=== PATIENT | female | born 1995 | race Caucasian/White ===

== ENCOUNTER → 2017-03-20 | Outpatient (REF) | payer BC | LOC: M LAB REF 19:17 | DX: J02.9 Acute pharyngitis, unspecified (principal) | CPT/HCPCS: 87070 ==

== ENCOUNTER 2017-07-25 09:11 | Emergency (ER) | payer BC ==
[2017-07-25 10:50] LABS: BASO % 0.3 % (0.0-1.0); EOS # 0.1 10^3/uL (0.0-0.50); EOS % 0.7 % (0.0-3.0); HEMATOCRIT 44.2 % (36.0-47.0); HEMOGLOBIN 14.2 g/dl (12.0-15.5); IMMATURE GRANULOCYTE % 0.7 % (0-3.0); LYMPH # 2.8 10^3/uL (1.5-6.5); LYMPH % 24.5 % (24.0-44.0); MEAN CORPUSCULAR HEMOGLOBIN 25.7 pg (27.0-33.0); MEAN CORPUSCULAR HGB CONC 32.1 g/dl (32.0-36.5); MEAN CORPUSCULAR VOLUME 80.1 fl (80.0-96.0); MONO # 0.9 10^3/uL (0.0-0.8); MONO % 7.5 % (0.0-5.0); NEUTROPHILS # 7.6 10^3/uL (1.8-7.7); NEUTROPHILS % 66.3 % (36.0-66.0); PLATELET COUNT, AUTOMATED 306 10^3/uL (150-450); RED BLOOD COUNT 5.52 10^6/uL (4.00-5.40); RED CELL DISTRIBUTION WIDTH 13.3 % (11.5-14.5); WHITE BLOOD COUNT 11.5 10^3/uL (4.0-10.0)
[2017-07-25] MEDS: MORPHINE 4 MG/ML 1ML VIAL/SYRINGE (J2270) IV (11:03)
[2017-07-25] MEDS: NS 1,000 ML IV (11:03)
[2017-07-25] MEDS: ONDANSETRON 4MG/2ML VIAL (J2405) IV (11:03)
[2017-07-25 11:06] LABS: ANION GAP 8 MEQ/L (8-16); BLOOD UREA NITROGEN 14 MG/DL (7-18); CALCIUM LEVEL 9.5 MG/DL (8.5-10.1); CARBON DIOXIDE LEVEL 26 MEQ/L (21-32); CHLORIDE LEVEL 104 MEQ/L (98-107); CREATININE FOR GFR 0.81 MG/DL (0.55-1.30); GLOMERULAR FILTRATION RATE > 60.0 (>60); GLUCOSE, FASTING 90 MG/DL (70-100); POTASSIUM SERUM 4.3 MEQ/L (3.5-5.1); SODIUM LEVEL 138 MEQ/L (136-145)
[2017-07-25] MEDS ORDERED: ISOVUE-370 76% 100ML VIAL (Q9967) As Ordered (12:00)
== END 2017-07-25 13:17 | disposition home or self-care (01) ==
LOC: M ED 09:11
DX: N83.01 Follicular cyst of right ovary (principal)
CPT/HCPCS: J2270

== ENCOUNTER → 2017-08-15 | Outpatient (REF) | payer BC | LOC: M LAB REF 11:49 | DX: R11.2 Nausea with vomiting, unspecified (principal) | CPT/HCPCS: 87086 ==

== ENCOUNTER → 2017-08-17 | Outpatient (CLI) | payer BC ==
[2017-08-17 12:17] LABS: BASO % 0.5 % (0.0-1.0); EOS # 0.1 10^3/uL (0.0-0.50); EOS % 1.3 % (0.0-3.0); HEMATOCRIT 42.3 % (36.0-47.0); HEMOGLOBIN 13.3 g/dl (12.0-15.5); IMMATURE GRANULOCYTE % 0.3 % (0-3.0); LYMPH # 2.6 10^3/uL (1.5-6.5); LYMPH % 34.8 % (24.0-44.0); MEAN CORPUSCULAR HEMOGLOBIN 25.7 pg (27.0-33.0); MEAN CORPUSCULAR HGB CONC 31.4 g/dl (32.0-36.5); MEAN CORPUSCULAR VOLUME 81.7 fl (80.0-96.0); MONO # 0.6 10^3/uL (0.0-0.8); MONO % 8.6 % (0.0-5.0); NEUTROPHILS # 4.1 10^3/uL (1.8-7.7); NEUTROPHILS % 54.5 % (36.0-66.0); PLATELET COUNT, AUTOMATED 285 10^3/uL (150-450); RED BLOOD COUNT 5.18 10^6/uL (4.00-5.40); RED CELL DISTRIBUTION WIDTH 13.5 % (11.5-14.5); WHITE BLOOD COUNT 7.5 10^3/uL (4.0-10.0)
[2017-08-17 12:39] LABS: ALBUMIN 3.8 GM/DL (3.2-5.2); ALBUMIN/GLOBULIN RATIO 0.97 (1.00-1.93); ALKALINE PHOSPHATASE 76 U/L (45-117); ALT/SGPT 38 U/L (12-78); ANION GAP 9 MEQ/L (8-16); AST/SGOT 18 U/L (7-37); BILIRUBIN,TOTAL 0.4 MG/DL (0.2-1.0); BLOOD UREA NITROGEN 6 MG/DL (7-18); CALCIUM LEVEL 8.7 MG/DL (8.5-10.1); CARBON DIOXIDE LEVEL 24 MEQ/L (21-32); CHLORIDE LEVEL 108 MEQ/L (98-107); CREATININE FOR GFR 0.63 MG/DL (0.55-1.30); GLOMERULAR FILTRATION RATE > 60.0 (>60); GLUCOSE, FASTING 91 MG/DL (70-100); LIPASE 96 U/L (73-393); POTASSIUM SERUM 3.8 MEQ/L (3.5-5.1); SODIUM LEVEL 141 MEQ/L (136-145); TOTAL PROTEIN 7.7 GM/DL (6.4-8.2)
== END ==
LOC: M WUC 09:22
DX: R19.7 Diarrhea, unspecified (principal)

== ENCOUNTER → 2018-01-30 | Outpatient (REF) | payer BC | LOC: M LAB REF 19:19 | DX: J04.2 Acute laryngotracheitis (principal) | CPT/HCPCS: 87070 ==

== ENCOUNTER 2018-07-09 07:43 | Emergency (ER) | payer BC ==
[~2018-07-09] VITALS: Ht 149.9 cm; Wt 101.8 kg
[~2018-07-09 07:43] MED LIST: IBUP-1022 PO; ZOFR4TAB14 PO
[2018-07-09 07:45] VITALS: BP 130/79
[2018-07-09] MEDS ORDERED: PARO5TAB (07:51)
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
[2018-07-09] MEDS ORDERED: NAPR-837 PO (09:06)
== END 2018-07-09 09:11 | disposition home or self-care (01) ==
LOC: M ED 07:43
DX: S83.92XA Sprain of unspecified site of left knee, initial encounter (principal); S80.02XA Contusion of left knee, initial encounter; X58.XXXA Exposure to other specified factors, initial encounter; Y92.098 Other place in other non-institutional residence as the place of occurrence of the external cause

== ENCOUNTER 2018-08-06 16:18 | Emergency (ER) | payer BC ==
[~2018-08-06] VITALS: Ht 149.9 cm; Wt 103.2 kg
[~2018-08-06 16:18] MED LIST changes: +NAPR-837 PO; +PARO5TAB
--- NOTE | 2018-08-06 18:36 | REP ---
REASON: Knee pain. FINDINGS: The compartments are symmetric and relatively well maintained. There is no acute fracture or destructive osseous lesion. Electronically Signed by Vkitor Oleary DO 08/06/2018 07:43 P
[2018-08-06 19:04] VITALS: BP 129/81
== END 2018-08-06 19:19 | disposition home or self-care (01) ==
LOC: M ED 16:18
DX: S80.02XA Contusion of left knee, initial encounter (principal); X58.XXXA Exposure to other specified factors, initial encounter; Y92.099 Unspecified place in other non-institutional residence as the place of occurrence of the external cause; Y93.9 Activity, unspecified; Y99.9 Unspecified external cause status; Z79.899 Other long term (current) drug therapy

== ENCOUNTER → 2019-07-25 | Outpatient (REF) | payer BC | LOC: M WUC 16:09 | PROVIDERS: ATTEND Physician Assistant | DX: J02.9 Acute pharyngitis, unspecified (principal) ==

== ENCOUNTER → 2020-03-18 | Outpatient (CLI) | payer BC ==
--- NOTE | 2020-03-18 09:37 | REP ---
INDICATION: PAIN COMPARISON: None. TECHNIQUE: AP, lateral, bilateral oblique, and coned-down views of the lumbar spine. FINDINGS: Alignment and lordosis maintained. Vertebral bodies are intact. Disc spaces are relatively normal/age-appropriate. No acute fracture/compression injury or subluxation. No obvious spondylolysis or spondylolisthesis.. IMPRESSION: Normal Lumbosacral Spine series. <Electronically signed by Carlos Eduardo Sher > 03/18/20 0997
--- NOTE | 2020-03-18 09:40 | REP ---
INDICATION: PAIN COMPARISON: None. TECHNIQUE: AP, oblique and lateral views of the sacrum and coccyx (4 total views) FINDINGS: Sacrum and coccyx are intact. Bilateral sacroiliac joints are symmetric and normal. No acute fracture or dislocation. No healed injury. No obvious degenerative changes. IMPRESSION: Normal examination. No acute fracture or dislocation. <Electronically signed by Carlos Eduardo Sher > 03/18/20 0936
--- NOTE | 2020-03-18 09:41 | REP ---
INDICATION: PAIN COMPARISON: None. TECHNIQUE: AP and frog-lateral views of the right hip FINDINGS: No acute fracture or dislocation. No significant degenerative changes. Surrounding soft tissues are unremarkable. IMPRESSION: Normal right hip radiographs. <Electronically signed by Carlos Eduardo Sher > 03/18/20 0937
== END ==
LOC: M WUC 08:37
PROVIDERS: ATTEND Physician Assistant
DX: M54.5 Low back pain (principal); M25.551 Pain in right hip

== ENCOUNTER → 2020-07-17 | Outpatient (REF) | payer BC | LOC: M SFHCWAGY 17:32 | PROVIDERS: ATTEND Advanced Practice Midwife | DX: Z01.419 Encounter for gynecological examination (general) (routine) without abnormal findings (principal); Z12.4 Encounter for screening for malignant neoplasm of cervix ==

== ENCOUNTER → 2020-12-14 | Outpatient (CLI) | payer BC ==
[2020-12-14 18:13] LABS: HEMATOCRIT 38.9 % (36.0-47.0); HEMOGLOBIN 12.3 g/dl (12.0-15.5); MEAN CORPUSCULAR HEMOGLOBIN 25.7 pg (27.0-33.0); MEAN CORPUSCULAR HGB CONC 31.6 g/dl (32.0-36.5); MEAN CORPUSCULAR VOLUME 81.2 fl (80.0-96.0); PLATELET COUNT, AUTOMATED 260 10^3/uL (150-450); RED BLOOD COUNT 4.79 10^6/uL (4.00-5.40)
[2020-12-14 19:39] LABS: GC DNA AMPLIFICATION NEGATIVE (NEGATIVE)
[2020-12-14 21:38] LABS: HIV 1&2 SCREEN CENTAUR NEGATIVE (NEGATIVE)
[2020-12-15 06:06] LABS: HEPATITIS C VIRUS ABY INDEX 3.1 INDEX (<0.8)
== END ==
LOC: M PLALAB 13:41
PROVIDERS: ATTEND Advanced Practice Midwife
DX: Z34.81 Encounter for supervision of other normal pregnancy, first trimester (principal); Z3A.00 Weeks of gestation of pregnancy not specified

== ENCOUNTER 2021-01-01 14:05 | Emergency (ER) | payer BC ==
[~2021-01-01] VITALS: Ht 149.9 cm; Wt 105.8 kg
--- OUTSIDE RECORDS SUMMARY | 2021-01-01 14:11 | CCD ---
Author Author [facility] Organization [facility] Address Unknown Phone Unavailable Care Team Providers Care Work Station Support Specialist Name Role Phone Adrianna Cadet Unavailable PROBLEMS Type Condition ICD9-CM Code [id number] Code Onset Dates Condition S tatus W/U Status Risk SNOMED Code Notes Problem Generalized anxiety disorder F41.1 Active confirme d 14279654 Problem Supervision of other normal Z34.80 Ac tive confirm 106525409 ALLERGIES No Known Allergies ENCOUNTERS from 1994 to 2020-12-15 Encounter Location Date Provider Diagnosis [facility] [address] [place] [address] [place] [address] Dec, AdriannaLianna Cadet Encounter for superv ision of other normal in first trimester Z34.81 IMMUNIZATIONS No Information SOCIAL HISTORY Tobacco Use: Social History Observation Description Date Details (start date - stop date) Former Smoker Sex Assigned At : Social History Observation Description Sex Assigned At Unknown Tobacco Use: Question Answer Notes Are you a: former smoker How long has it been since you last smoked? 5-10 years REASON FOR REFERRAL No Information VITAL SIGNS Weight 230.2 lbs Dec, Weight-kg 104.42 kg Dec, Height 59 in Dec, BMI 46.495 kg/m2 Dec, Blood pressure systolic 120 mm Hg Dec, Blood pressure diastolic 72 mm Hg Dec, MEDICATIONS Medication SIG (Take, Route, Frequency, Duration) Notes Start Da te End Date Status Ondansetron 4 MG 1 tablet on the tongue and a llow to dissolve Orally Once a day for 30 day(s) Dec, Active ZyrTEC Not-Taking Singulair Not-Taking Effexor XR 37.5 MG 1 capsule with food Orally Once a day for 30 day(s) July, Active Cetirizine HCl 10 MG 1 tablet Orally Once a day for 30 day(s) Dec, Active 27-1 MG 1 tablet Orally Once a day Active PROCEDURES No Information RESULTS No Results REASON FOR VISIT 1st PN MEDICAL (GENERAL) HISTORY Type Description Date Medical History seasonal allergy Medical History anxiety Medical History hip dysplasia Surgical History adenoidectomy Surgical History tubes bilateral ears Surgical History 3 bone graft in mouth Surgical History Right Hip surgery Goals Section No Information Health Concerns No Information MEDICAL EQUIPMENT No Information MENTAL STATUS No Information FUNCTIONAL STATUS No Information ASSESSMENTS Encounter Date Diagnosis Assessment Notes Treatment Notes Treatm ent Clinical Notes Dec, Encounter for supervision of other normal in first trimester (ICD-10 - Z34.81) PLAN OF TREATMENT Medication Medication Name Sig Start Date Stop Date Ondansetron 4 MG 1 tablet on the tongue and a llow to dissolve Orally Once a day for 30 day(s) Dec, Cetirizine HCl 10 MG 1 tablet Orally Once a day for 30 day(s) Dec, Effexor XR 37.5 MG 1 capsule with food Orally Once a day fo r 30 day(s) July, Treatment Notes Test Name Order Date HIV 1and2 ANTIBODY SCREEN 2020-12-14 SYPHILIS ANTIBODY (RPR SCREEN) 2020-12-14 CBC - Complete Blood Count 2020-12-14 RUBELLA IMMUNE STATUS IgG 2020-12-14 URINE CULTURE 2020-12-14 CHLAMYDIA & GC DNA AMPLIFICAT 2020-12-14 HEPATITIS C ANTIBODY INDEX 2020-12-14 HBSAG 2020-12-14 Type and Screen Prenatal1 2020-12-14 Next Appt Details 4 Weeks Reason: Provider Name:Andreas Smyth, 07:15:00 AM, [address] [facility], , [place], [address], Insurance Providers Payer Name Payer Address Payer Phone Insured Name Patient Relati onship to Insured Coverage Start Date Coverage End Date BCBS [place] PPO [phone] [facility] [place] [address]
--- OUTSIDE RECORDS SUMMARY | 2021-01-01 14:11 | CCD ---
Author Author [facility] Organization [facility] Address Unknown Phone Unavailable Care Team Providers Care Claims Investigator Name Role Phone Marcos Corrales Unavailable PROBLEMS Type Condition ICD9-CM Code [id number] Code Onset Dates Condition S tatus W/U Status Risk SNOMED Code Notes Problem Generalized anxiety disorder F41.1 Active confirme d 28814159 Problem Supervision of other normal Z34.80 Ac tive confirm [id number] ALLERGIES No Known Allergies ENCOUNTERS from 1994 to 2020-12-10 Encounter Location Date Provider Diagnosis [facility] [address] [place] [address] [place] [address] Dec, Marcos Corrales IMMUNIZATIONS No Information SOCIAL HISTORY Tobacco Use: Social History Observation Description Date Details (start date - stop date) Former Smoker Sex Assigned At : Social History Observation Description Sex Assigned At Unknown Tobacco Use: Question Answer Notes Are you a: former smoker REASON FOR REFERRAL No Information VITAL SIGNS No information MEDICATIONS Medication SIG (Take, Route, Frequency, Duration) Notes Start Da te End Date Status ZyrTEC Active Singulair Active Effexor XR 37.5 MG 1 capsule with food Orally Once a day for 30 day(s) July, Active PROCEDURES No Information RESULTS No Results REASON FOR VISIT spotting MEDICAL (GENERAL) HISTORY Type Description Date Medical History seasonal allergy Medical History anxiety Medical History hip dysplasia Surgical History adenoidectomy Surgical History tubes bilateral ears Surgical History 3 bone graft in mouth Goals Section No Information Health Concerns No Information MEDICAL EQUIPMENT No Information MENTAL STATUS No Information FUNCTIONAL STATUS No Information ASSESSMENTS No Information PLAN OF TREATMENT Medication Medication Name Sig Start Date Stop Date Effexor XR 37.5 MG 1 capsule with food Orally Once a day fo r 30 day(s) July, Next Appt Details Provider Name:Adrianna Cadet, 2020-12-14 0 1:00:00 PM, [address] [facility], , [place], [address], Insurance Providers Payer Name Payer Address Payer Phone Insured Name Patient Relati onship to Insured Coverage Start Date Coverage End Date [phone] [facility] [place] [id number] JOSE ANGEL SALVADOR self
--- OUTSIDE RECORDS SUMMARY | 2021-01-01 14:12 | CCD ---
Author Author [facility] Organization [facility] Address Unknown Phone Unavailable Care Team Providers Care Cemetery Laborer Name Role Phone Romero, Maki KNIFEMAN Unavailable Unavailable Romero, Maki KNIFEMAN Unavailable Unavailable Romero, Maki KNIFEMAN Unavailable Unavailable Romero, Maki KNIFEMAN Unavailable Unavailable Romero, Maki KNIFEMAN Unavailable Unavailable Romero, Maki KNIFEMAN Unavailable Unavailable Romero, Maki KNIFEMAN Unavailable Unavailable Romero, Maki KNIFEMAN Unavailable Unavailable Romero, Maki KNIFEMAN Unavailable Unavailable Romero, Maki KNIFEMAN Unavailable Unavailable Romero, Maki KNIFEMAN Unavailable Unavailable Romero, Maki KNIFEMAN Unavailable Unavailable Romero, Maki KNIFEMAN Unavailable Unavailable Fish, B Romel GARCIA Unavailable Unavailable Fish, B Romel GARCIA Unavailable Unavailable Fish, B Romel GARCIA Unavailable Unavailable Fish, B Romel GARCIA Unavailable Unavailable Fish, B Romel GARCIA Unavailable Unavailable Fish, B Romel GARCIA Unavailable Unavailable Fish, B Romel GARCIA Unavailable Unavailable Fish, B Romel GARCIA Unavailable Unavailable Fish, B Romel GARCIA Unavailable Unavailable Fish, B Romel GARCIA Unavailable Unavailable Fish, B Romel GARCIA Unavailable Unavailable Fish, B Romel GARCIA Unavailable Unavailable Fish, B Romel GARCIA Unavailable Unavailable Fish, B Romel GARCIA Unavailable Unavailable Fish, B Romel GARCIA Unavailable Unavailable Fish, B Romel GARCIA Unavailable Unavailable Fish, B Romel GARCIA Unavailable Unavailable Fish, B Romel GARCIA Unavailable Unavailable Fish, B Romel GARCIA Unavailable Unavailable Fish, B Romel GARCIA Unavailable Unavailable Fish, B Romel GARCIA Unavailable Unavailable Fish, B Romel GARCIA Unavailable Unavailable Fish, B Romel GARCIA Unavailable Unavailable Fish, B Romel GARCIA Unavailable Unavailable Fish, B Romel GARCIA Unavailable Unavailable Fish, B Romel GARCIA Unavailable Unavailable Fish, B Romel GARCIA Unavailable Unavailable Fish, B Romel GARCIA Unavailable Unavailable Fish, B Romel GARCIA Unavailable Unavailable Fish, B Romel GARCIA Unavailable Unavailable Fish, B Romel GARCIA Unavailable Unavailable Fish, B Romel GARCIA Unavailable Unavailable Fish, B Romel GARCIA Unavailable Unavailable Fish, B Romel GARCIA Unavailable Unavailable Fish, B Romel GARCIA Unavailable Unavailable Fish, B Romel GARCIA Unavailable Unavailable Fish, B Romel GARCIA Unavailable Unavailable Fish, B Romel GARCIA Unavailable Unavailable Fish, B Romel GARCIA Unavailable Unavailable Fish, B Romel GARCIA Unavailable Unavailable Fish, B Romel GARCIA Unavailable Unavailable Fish, B Romel GARCIA Unavailable Unavailable Fish, B Romel GARCIA Unavailable Unavailable Fish, B Romel GARCIA Unavailable Unavailable Fish, B Romel GARCIA Unavailable Unavailable Fish, B Romel GARCIA Unavailable Unavailable Fish, B Romel GARCIA Unavailable Unavailable Fish, B Romel GARCIA Unavailable Unavailable Fish, B Romel GARCIA Unavailable Unavailable Fish, B Romel GARCIA Unavailable Unavailable Fish, B Romel GARCIA Unavailable Unavailable Fish, B Romel GARCIA Unavailable Unavailable Fish, B Romel GARCIA Unavailable Unavailable Fish, B Romel GARCIA Unavailable Unavailable Fish, B Romel GARCIA Unavailable Unavailable Fish, B Romel GARCIA Unavailable Unavailable Bob, Celestino Knapp MD Unavailable Unavailable Bob, Celestino Knapp MD Unavailable Unavailable Bob, Celestino Knapp MD Unavailable Unavailable Bob, Celestino Knapp MD Unavailable Unavailable Bob, Celestino Knapp MD Unavailable Unavailable Bob, Celestino Knapp MD Unavailable Unavailable Bob, Celestino Knapp MD Unavailable Unavailable Bob, Celestino Knapp MD Unavailable Unavailable Bob, Celestino Knapp MD Unavailable Unavailable Bob, Celestino Knapp MD Unavailable Unavailable Bob, Celestino Knapp MD Unavailable Unavailable Bob, Celestino Knapp MD Unavailable Unavailable Bob, Celestino Knapp MD Unavailable Unavailable Bob, Celestino Knapp MD Unavailable Unavailable Bob, Celestino Knapp MD Unavailable Unavailable Bob, Celestino Knapp MD Unavailable Unavailable Bob, Celestino Knapp MD Unavailable Unavailable Bob, Celestino Knapp MD Unavailable Unavailable Bob, Celestino Knapp MD Unavailable Unavailable Bob, Celestino Knapp MD Unavailable Unavailable Bob, Celestino Knapp MD Unavailable Unavailable Bob, Celestino Knapp MD Unavailable Unavailable Bob, Celestino Knapp MD Unavailable Unavailable Bob, Celestino Knapp MD Unavailable Unavailable Bob, Celestino Knapp MD Unavailable Unavailable Bob, Celestino Knapp MD Unavailable Unavailable Bob, Celestino Knapp MD Unavailable Unavailable Bob, Celestino Knapp MD Unavailable Unavailable Bob, Celestino Knapp MD Unavailable Unavailable Bob, Celestino Knapp MD Unavailable Unavailable Bob, Celestino Knapp MD Unavailable Unavailable Bob, Celestino Knapp MD Unavailable Unavailable Bob, Celestino Knapp MD Unavailable Unavailable Bob, Celestino Knapp MD Unavailable Unavailable Bob, Celestino Knapp MD Unavailable Unavailable Bob, Celestino Knapp MD Unavailable Unavailable Bob, Celestino Knapp MD Unavailable Unavailable Bob, Celestino Knapp MD Unavailable Unavailable Bob, Celestino Knapp MD Unavailable Unavailable Bob, Celestino Knapp MD Unavailable Unavailable Bob, Celestino Knapp MD Unavailable Unavailable Bob, Celestino Knapp MD Unavailable Unavailable Bob, Celestino Knapp MD Unavailable Unavailable Bob, Celestino Knapp MD Unavailable Unavailable Bob, Celestino Knapp MD Unavailable Unavailable Bob, Celestino Knapp MD Unavailable Unavailable Bob, Celestino Knapp MD Unavailable Unavailable Bob, Celestino Knapp MD Unavailable Unavailable Bob, Celestino Knapp MD Unavailable Unavailable Bob, Celestino Knapp MD Unavailable Unavailable Bob, Celestino Knapp MD Unavailable Unavailable Bob, Celestino Knapp MD Unavailable Unavailable Bob, Celestino Knapp MD Unavailable Unavailable Bob, Celestino Knapp MD Unavailable Unavailable Bob, Celestino Knapp MD Unavailable Unavailable Bob, Celestino Knapp MD Unavailable Unavailable Bob, Celestino Knapp MD Unavailable Unavailable Bob, Celestino Knapp MD Unavailable Unavailable Bob, Celestino Knapp MD Unavailable Unavailable Bob, Celestino Knapp MD Unavailable Unavailable Bob, Celestino Knapp MD Unavailable Unavailable Bob, Celestino Knapp MD Unavailable Unavailable Bob, Celestino Knapp MD Unavailable Unavailable Bob, Celestino Knapp MD Unavailable Unavailable Bob, Celestino Knapp MD Unavailable Unavailable Bob, Celestino Knapp MD Unavailable Unavailable Bob, Celestino Knapp MD Unavailable Unavailable LETTIERE, A KATHERINE PA Unavailable Unavailable LETTIERE, A KATHERINE PA Unavailable Unavailable LETTIERE, A KATHERINE PA Unavailable Unavailable LETTIERE, A KATHERINE PA Unavailable Unavailable LETTIERE, A KATHERINE PA Unavailable Unavailable LETTIERE, A KATHERINE PA Unavailable Unavailable LETTIERE, A KATHERINE PA Unavailable Unavailable LETTIERE, A KATHERINE PA Unavailable Unavailable LETTIERE, A KATHERINE PA Unavailable Unavailable LETTIERE, A KATHERINE PA Unavailable Unavailable LETTIERE, A KATHERINE PA Unavailable Unavailable LETTIERE, A KATHERINE PA Unavailable Unavailable LETTIERE, A KATHERINE PA Unavailable Unavailable LETTIERE, A KATHERINE PA Unavailable Unavailable LETTIERE, A KATHERINE PA Unavailable Unavailable LETTIERE, A KATHERINE PA Unavailable Unavailable LETTIERE, A KATHERINE PA Unavailable Unavailable LETTIERE, A KATHERINE PA Unavailable Unavailable LETTIERE, A KATHERINE PA Unavailable Unavailable LETTIERE, A KATHERINE PA Unavailable Unavailable LETTIERE, A KATHERINE PA Unavailable Unavailable LETTIERE, A KATHERINE PA Unavailable Unavailable LETTIERE, A KATHERINE PA Unavailable Unavailable LETTIERE, A KATHERINE PA Unavailable Unavailable LETTIERE, A KATHERINE PA Unavailable Unavailable LETTIERE, A KATHERINE PA Unavailable Unavailable LETTIERE, A KATHERINE PA Unavailable Unavailable LETTIERE, A KATHERINE PA Unavailable Unavailable LETTIERE, A KATHERINE PA Unavailable Unavailable LETTIERE, A KATHERINE PA Unavailable Unavailable LETTIERE, A KATHERINE PA Unavailable Unavailable TONTARSKI, G MATHEW PA Unavailable Unavailable TONTARSKI, G MATHEW PA Unavailable Unavailable TONTARSKI, G MATHEW PA Unavailable Unavailable TONTARSMICAELA, G MATHEW PA Unavailable Unavailable TONTARSKI, G MATHEW PA Unavailable Unavailable TONTARSMICAELA, G MATHEW PA Unavailable Unavailable TONTARSMICAELA, G MATHEW PA Unavailable Unavailable TONTARSMICAELA, G MATHEW PA Unavailable Unavailable TONTARSMICAELA, G MATHEW PA Unavailable Unavailable TONTARSMICAELA, G MATHEW PA Unavailable Unavailable TONTARSMICAELA, G MATHEW PA Unavailable Unavailable TONTARSKI, G MATHEW PA Unavailable Unavailable TONTARSKI, G MATHEW PA Unavailable Unavailable TONTARSKI, G MATHEW PA Unavailable Unavailable TONTARSKI, G MATHEW PA Unavailable Unavailable TONTARSKI, G MATHEW PA Unavailable Unavailable TONTARSKI, G MATHEW PA Unavailable Unavailable TONTARSKI, G MATHEW PA Unavailable Unavailable TONTARSMICAELA, G MATHEW PA Unavailable Unavailable TONTARSKI, G MATHEW PA Unavailable Unavailable TONTARSKI, G MATHEW PA Unavailable Unavailable TONTARSKI, G MATHEW PA Unavailable Unavailable TONTARSKI, G MATHEW PA Unavailable Unavailable TONTARSKI, G MATHEW PA Unavailable Unavailable TONTARSKI, G MATHEW PA Unavailable Unavailable TONTARSKI, G MATHEW PA Unavailable Unavailable TONTARSKI, G MATHEW PA Unavailable Unavailable TONTARSKI, G MATHEW PA Unavailable Unavailable TONTARSKI, G MATHEW PA Unavailable Unavailable TONTARSKI, G MATHEW PA Unavailable Unavailable TONTARSKI, G MATHEW PA Unavailable Unavailable TONTARSKI, G MATHEW PA Unavailable Unavailable TONTARSKI, G MATHEW PA Unavailable Unavailable TONTARSKI, G MATHEW PA Unavailable Unavailable TONTARSKI, G MATHEW PA Unavailable Unavailable TONTARSKI, G MATHEW PA Unavailable Unavailable TONTARSKI, G MATHEW PA Unavailable Unavailable TONTARSKI, G MATHEW PA Unavailable Unavailable TONTARSKI, G MATHEW PA Unavailable Unavailable TONTARSKI, G MATHEW PA Unavailable Unavailable TONTARSKI, G MATHEW PA Unavailable Unavailable TONTARSKI, G MATHEW PA Unavailable Unavailable TONTARSKI, G MATHEW PA Unavailable Unavailable TONTARSKI, G MATHEW PA Unavailable Unavailable TONTARSKI, G MATHEW PA Unavailable Unavailable TONTARSKI, G MATHEW PA Unavailable Unavailable TONTARSKI, G MATHEW PA Unavailable Unavailable Re-disclosure Warning The records that you are about to access may contain information from federally-assisted alcohol or drug abuse programs. If such information is present, then the following federally mandated warning applies: This information has been disclosed to you from records protected by federal confidentiality rules (42 CFR part 2). The federal rules prohibit you from making any further disclosure of this information unless further disclosure is expressly permitted by the written consent of the person to whom it pertains or as otherwise permitted by 42 CFR part 2. A general authorization for the release of medical or other information is NOT sufficient for this purpose. The Federal rules restrict any use of the information to criminally investigate or prosecute any alcohol or drug abuse patient.The records that you are about to access may contain highly sensitive health information, the redisclosure of which is protected by Article 27-F of the [place] [employer] [place] Public Health law. If you continue you may have access to information: Regarding HIV / AIDS; Provided by facilities licensed or operated by the [employer] Office of Mental Health; or Provided by the [facility] [employer] Office for People With Developmental Disabilities. If such information is present, then the following [employer] mandated warning applies: This information has been disclosed to you from confidential records which are protected by state law. State law prohibits you from making any further disclosure of this information without the specific written consent of the person to whom it pertains, or as otherwise permitted by law. Any unauthorized further disclosure in violation of state law may result in a fine or snf sentence or both. A general authorization for the release of medical or other information is NOT sufficient authorization for further disc losure. Family History Family Member Name Family Member Gender Family Member Status Date o f Status Description Data Source(s) Unknown Male Problem MEDENT ([facility]) Unknown Unknown Problem [facility] ([facility]) Encounters Encounter Providers Location Date Indications Data Source(s ) ( ESTOB) [facility] Est OB [address] [place] [address] 12/14/2020 12:00:00 AM EDT eCW1 ([facility]) Unknown [address] [facility] [address] 12/10/2020 12:00:00 AM EDT eCW1 ([facility]) Unknown [address] [facility] [address] 11/25/2020 12:00:00 AM EDT eCW1 ([facility] [place]) Unknown [address] [facility] [address] 11/20/2020 12:00:00 AM EDT eCW1 ([facility]) Unknown [address] [facility] [address] 08/21/2020 12:00:00 AM EDT eCW1 ([facility]) Office Visit Attender: Ra Rojas MD [place] [facility] 11:20:00 AM EDT MEDENT ([facility] ) Outpatient [address] [facility] [address] 07/17/2020 12:00:00 AM EDT eCW1 ([facility]) Outpatient Attender: Ra Rojas MD [place] [facility] 01:00:00 PM EDT MEDENT ([facility] ) Outpatient Attender: Ra Rojas MD [place] [facility] 11:30:00 AM EDT MEDENT ([facility] ) Outpatient Attender: AMTHEW GRIJALVA [facility] 06/08/2020 09:00:00 AM EDT MEDENT ([facility]) Outpatient Attender: Romel Ewing MD Physical Therapy 05/14/2020 0 7:30:00 AM EST MEDENT ([facility]) Outpatient Attender: Romel Ewing MD Physical Therapy 04/07/2020 1 2:00:00 PM EST MEDENT ([facility]) Outpatient Attender: KATHERINE mello 03/18/2020 07:15:00 AM EST MEDENT ([facility]) Outpatient Attender: MATHEW GRIJALVA [facility] 03/09/2020 07:30:00 AM EST MEDENT ([facility]) Outpatient Attender: Maki lindsey 02/13/2020 04:00:00 PM EST MEDENT ([facility]) Immunizations Vaccine Date Status Description Data Source(s) COVID-19 VACCINE Moderna 05/14/2020 12:00:00 AM EST completed [facility] Vaccine Series Complete: YESThis Data wa s Submitted to [facility]. COVID-19 VACCINE Moderna 04/16/2020 12:00:00 AM EST completed [place] Vaccine Series Complete: NOThis Data was Submitted to [facility]. Medications Medication Brand Name Start Date Product Form Dose Route Admi nistrative Instructions Pharmacy Instructions Status Indications Reaction Description Data Source(s) Ondansetron 4 MG Disintegrating Oral Tablet Ondansetron 4 MG 12/14/2020 12:00:00 AM EDT 1.0 {tablet_on_the_tongue_and_allow_to_dissolve} active Ondansetron 4 MG eCW1 ([facility]) cetirizine hydrochloride 10 MG Oral Tablet Cetirizine HCl 10 MG Cetirizine HCl 10 MG 12/14/2020 12:00:00 AM EDT 1.0 {tablet} activ e Cetirizine HCl 10 MG eCW1 ([facility]) Cephalexin 500 MG Oral Capsule [Keflex] Keflex 07/27/2020 12:00:0 0 AM EDT ORAL completed MEDENT ([facility]) 24 HR venlafaxine 37.5 MG Extended Relea se Oral Capsule [Effexor] Effexor XR 37.5 MG Effexor XR 37.5 MG 07/17/2020 12:00:00 AM EDT 1.0 {cap sule_with_food} active Effexor XR 37.5 MG e CW1 ([facility]) 24 HR venlafaxine 37.5 MG Extended Relea se Oral Capsule [Effexor] Effexor XR 37.5 MG Effexor XR 37.5 MG 07/17/2020 12:00:00 AM EDT 1.0 {cap sule_with_food} active Effexor XR 37.5 MG e CW1 ([facility]) 24 HR venlafaxine 37.5 MG Extended Relea se Oral Capsule [Effexor] Effexor XR 37.5 MG Effexor XR 37.5 MG 07/17/2020 12:00:00 AM EDT 1.0 {cap sule_with_food} active Effexor XR 37.5 MG e CW1 ([facility]) 24 HR venlafaxine 37.5 MG Extended Relea se Oral Capsule [Effexor] Effexor XR 37.5 MG Effexor XR 37.5 MG 07/17/2020 12:00:00 AM EDT 1.0 {cap sule_with_food} active Effexor XR 37.5 MG e CW1 ([facility]) 24 HR venlafaxine 37.5 MG Extended Relea se Oral Capsule [Effexor] Effexor XR 37.5 MG Effexor XR 37.5 MG 07/17/2020 12:00:00 AM EDT 1.0 {cap sule_with_food} active Effexor XR 37.5 MG e CW1 ([facility]) 24 HR venlafaxine 37.5 MG Extended Relea se Oral Capsule [Effexor] Effexor XR 37.5 MG Effexor XR 37.5 MG 07/17/2020 12:00:00 AM EDT 1.0 {cap sule_with_food} active Effexor XR 37.5 MG e CW1 ([facility]) Acetaminophen 325 MG / Oxycodone Hydrochloride 5 MG Or al Tablet Oxycodone-Acetaminophen 07/14/2020 12:00:00 AM EDT ORAL completed MEDENT ([facility]) Zolpidem tartrate 10 MG Oral Tablet Zolpidem Tartrate 07/04 12:00:00 AM EDT completed MEDENT ([facility]) Naproxen 500 MG Oral Tablet Naproxen 07/14/2020 12:00:00 AM EDT ORAL active MEDENT ([facility]) Cephalexin 500 MG Oral Capsule Cephalexin 07/14/2020 12:00:00 AM EDT ORAL completed MEDENT ([facility]) Ibuprofen 800 MG Oral Tablet Ibuprofen 03/18/2020 12:00:00 AM EST active MEDENT ([facility]) Cyclobenzaprine hydrochloride 10 MG Oral Tablet Cyclobenzapr ine HCL 03/18/2020 12:00:00 AM EST active M EDENT ([facility]) Prednisone 20 MG Oral Tablet Prednisone 02/13/2020 12:00:00 AM EST completed MEDENT ([facility]) tizanidine 4 MG Oral Tablet Tizanidine HCL 02/13/2020 12:00:00 AM EST completed MEDENT ([facility]) Insurance Providers Payer name Policy type / Coverage type Policy ID Covered democrat ID Covered democrat's relationship to aldridge Policy [place] Plan Information NON CLIENT AGREEMENTS SPEC ID [id number] Patient SPEC ID [id number] NON CLIENT AGREEMENTS UNAVAILABLE Patient UNAVAILABLE [facility] PLUS (26) [id number] BC/BS PPO/EPO (28) [id number] BS [place] Commercial [id number] Self [id number] BCBS/Blue Card Commercial [id number] Family Dependent [id number] BCBS/Blue Card Commercial [id number] Family Dependent [id number] BCBS/Blue Card Commercial [id number] Family Dependent [id number] [place] BCBS B [id number] S RRF [id number] BCBS/Blue Card Commercial [id number] Family Dependent [id number] BCBS/Blue Card Commercial [id number] Family Dependent [id number] BCBS/Blue Card Commercial [id number] Family Dependent [id number] BCBS/Blue Card Commercial [id number] Family Dependent [id number] BCBS/Blue Card Commercial [id number] Self [id number] BLUE CROSS OUT OF STATE [id number] Parent [id number] SELF PAY 2 UNAVAILABLE 1 UNAVAILA BLE BC BLUE CARD 1 [id number] RRFA [id number] [place] P[place]/307 [id number] BLUE CROSS OUT OF STATE [id number] PA [id number] [place] PPO [place]/307 [id number] SP [id number] [place] BCBS B [id number] O [id number] [id number] [place] P[place]/307 [id number] [id number] Problems, Conditions, and Diagnoses Code Display Name Description Problem Type Effective Dates Data Source(s) Z34.80 care Supervision of other normal Olena moreno 12/10/2020 12:00:00 AM EDT eCW1 ([facility]) 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 Problem 08/04/2020 12:00:00 AM EDT MEDENT ([facility]) F41.1 [id number] Generalized anxiety disorder Problem 021 12:00:00 AM EDT eCW1 ([facility]) S76.011A Strain of flexor muscle of hip Strain of flexor muscle of hip Problem 06/15/2020 12:00:00 AM EDT MEDENT ([facility]) 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 Articular cartilage disorder of the pelvic region and thigh Problem 06/04 12:00:00 AM EDT MEDENT ([facility]) Surgeries/Procedures Procedure Description Date Indications Data Source(s) ARTHRS HIP DEBRIDEMENT/SHAVING ARTICULAR CRTLG 021 12:00:00 AM EDT MEDENT ([facility]) ARTHRS HIP DEBRIDEMENT/SHAVING ARTICULAR CRTLG 021 12:00:00 AM EDT MEDENT ([facility]) ARTHROSCOPY HIP SURGICAL W/SYNOVECTOMY 07/21/2020 12:0 0:00 AM EDT MEDENT ([facility]) ARTHROSCOPY HIP SURGICAL W/SYNOVECTOMY 07/21/2020 12:0 0:00 AM EDT MEDENT ([facility]) Arthrocentesis/Aspiration/Inj Major Joint Or Bursa W/ US Pradip dance 06/15/2020 12:00:00 AM EDT MEDENT ([facility] ) Therapeutic, Prophylactic Or Diagnostic Injection Subq/Im 03/18/2020 12:00:00 AM EST MEDENT ([facility]) Results ID Date Data Source PAP REQUEST FOR SERVICE 07/17/2020 12:00:00 AM EDT eCW1 ([facility]) Name Value Range Interpretation Code Description Data Iesha rce(s) Supporting Document(s) PAP REQUEST FOR SERVICE eCW1 ( [facility]) ID Date Data Source [id number] 07/17/2020 12:00:00 AM EDT [facility] Name Value Range Interpretation Code Description Data Iesha rce(s) Supporting Document(s) SARS-CoV2 Rapid Antigen Negative [facility] This lab was ordered by [facility] and reported by Clovis Watkins MD. ID Date Data Source [id number] 05/07/2020 12:00:00 AM EST [facility] Romel Ewing MD Patient Name: JOSE ANGEL SALVAD[address] [facility] Date of : 1995[place] [address] Date of Exam: 05/07/2020#: Fax: [phone] EXAM: MRI RIGHT HIP ARTHROGRAMCLINICAL INFORMATION: Right hip pain, rule out labral tear.TECHNIQUE:Pre and post contrast 3T MRI of the right hip with right hip arthrogram wasperformed utilizing various sequences. The hip arthrogram injection underfluoroscopic guidance was performed by VERNON Chavez, under mydirect supervision.Comparison xray 03/18/2020.FINDINGS:The whole pelvic T1 and STIR marrow sequences show lower lumbar, sacral,iliac, acetabular, ischial and hip marrow signal symmetric and grosslyintact. There is no bone bruise or fracture. I see no hip joint effusion. Disc water signal at L4-5 and L5-S1 appears normal. The intrinsic andextrinsic pelvic, hip, buttock and proximal thigh musculature was grosslysymmetric and without intramuscular hemorrhage, mass, atrophy or edema.About the right hip on the T2 images at the greater trochanter, there issome subtle hyperintense signal suggesting some tendinobursitis at thegluteus medius. No avulsion or fluid collection to suggest a tear. Nobursal fluid seen. Within the pelvis, the uterus is tilted towards theleft. There is a small nabothian cyst in the cervix. Both ovaries appeargrossly normal size with some centimeter and subcentimeter folliclesevident. No gross pelvic mass. There is no right-sided inguinal mass orpathologic sized adenopathy. The iliopsoas, obturator internus andhamstring tendons and their insertions were grossly intact. Bladderunder-filled without acute finding.After contrast arthrogram injection, there is a paralabral sulcus evidentsuperiorly. I do not see evidence for a loose body. There is a smallcleft at the anterior/superior margin of the superior labrum that mayreflect a small partial tear. The remainder of the superior labrum wasgrossly unremarkable. There is no evidence of AVN or hip fracture.IMPRESSION:1. There is a small tear at the anterior margin of the superior labrumbest seen on sagittal arthrogram Image 25, axial Image 18. A paralabralsulcus was also seen on this post arthrogram injection. There was no hipjoint effusion or loose body, bone bruise, fracture, AVN or other bonyabnormality about the hip.2. Mild trochanteric tendinobursitis about the greater trochanter withoutfluid collection to suggest bursitis.Accredited by the [employer] in MR.Rubens Krishna, MDPJL/Carlosk you for referring JOSE ANGEL SALVADOR to our office. Electronically Signed - RUBENS KRISHNA MD 05/08/20 11:54 Name Value Range Interpretation Code Description Data Iesha rce(s) Supporting Document(s) ID Date Data Source [id number] 05/07/2020 12:00:00 AM EST [facility] Romel Ewing MD Patient Name: NO SALVADOR1 [facility] Date of : 1995KASS[birth year] [place] [id number] Date of Exam: 1P#: Fax: [phone] EXAM: HIP ARTHROGRAM WITH INJECTIONRIGHT HIP ARTHROGRAM:The procedure was performed by VERNON Chavez under the directsupervision of Dr. Krishna.The benefits and risks including, but not limited to pain, infection,bleeding, and anaphylaxis were explained to the patient and informedconsent was obtained. The right femoral neck was localized usingfluoroscopic guidance. The skin was prepped and draped in a sterilefashion. 1% Lidocaine was used as a local anesthetic. Using fluoroscopicguidance, a #22 gauge spinal needle was inserted and advanced to thefemoral neck. 1 cc of Omnipaque 300 was injected to verify placement. 11cc of a solution containing 20 cc of sterile saline, 0.15 cc ProHance wasinjected into the joint space. The needle was removed and the patient wastaken to MRI for post procedural imaging.The patient tolerated the procedure well and there were no immediatecomplications.Fluoroscopic images are performed with last image hold technology. Theseimages require no additional radiation to acquire.Dictated by VERNON Chavez, with Dr. Krishna.Fluoroscopy time was 1 seconds at 3 pulses/second. This is equal to .25seconds continuous fluoroscopy time which is a 75% reduction in radiation.Rubens Krishna, MELISSA/George you for referring JOSE ANGEL SALVADOR to our office. Electronically Signed - RUBENS KRISHNA MD 03/04/21 17:30 Name Value Range Interpretation Code Description Data Iesha rce(s) Supporting Document(s) ID Date Data Source [id number] 03/23/2020 12:00:00 AM EST [facility] Name Value Range Interpretation Code Description Data Iesha rce(s) Supporting Document(s) SARS-CoV2 Rapid Antigen Negative [facility] This lab was ordered by [facility] and reported by Clovis Watkins MD. Procedure Social History Code Duration Value Status Description Data Source(s ) Smoking 12/14/2020 12:00:00 AM EDT Former Smoker completed Former Smoker eCW1 ([facility]) Smoking 12/10/2020 12:00:00 AM EDT Former Smoker completed Former Smoker eCW1 ([facility]) Smoking 09/02/2020 12:00:00 AM EDT Former Smoker completed Former Smoker eCW1 ([facility]) Smoking 09/02/2020 12:00:00 AM EDT Former Smoker completed Former Smoker eCW1 ([facility]) Smoking 08/04/2020 12:00:00 AM EDT Patient is a former smoker completed Patient is a former smoker MEDENT ([facility]) Smoking 07/17/2020 12:00:00 AM EDT Former Smoker completed Former Smoker eCW1 ([facility]) Smoking 07/17/2020 12:00:00 AM EDT Former Smoker completed Former Smoker eCW1 ([facility]) Vital Signs ID Date Data Source UNK Name Value Range Interpretation Code Description Data Source(s) Body weight 230.2 [lb_av] 230.2 [lb_av] eCW1 ([facility]) Body weight 104.42 kg 104.42 kg [facility] ([facility]) Body height 59 [in_i] 59 [in_i] W1 ([facility]) Body mass index (BMI) [Ratio] 46.495 kg/m2 46.4 95 kg/m2 [facility] ([facility]) Systolic blood pressure 120 mm[Hg] 120 mm[Hg] e CW1 ([facility]) Diastolic blood pressure 72 mm[Hg] 72 mm[Hg] eCW1 ([facility]) Body height 59 [in_i] 59 [in_i] MEDENT ([facility]) 4'11" Body weight 210.00 [lb_av] 210.00 [lb_av] MEDEN T ([facility]) Body mass index (BMI) [Ratio] 42.4 kg/m2 42.4 k g/m2 MEDENT ([facility]) Heart rate 112 /min 112 /min [facility] Body temperature 96.9 [degF] 96.9 [degF] MEDENT ([facility]) Oxygen saturation in Arterial blood by Pulse oximetry 99 % 99 % MEDENT ([facility]) Body weight 217 [lb_av] 217 [lb_av] eCW1 ([facility]) Body height 59 [in_i] 59 [in_i] eCW1 ([facility]) Body mass index (BMI) [Ratio] 43.82 kg/m2 43.82 kg/m2 eCW1 ([facility]) Systolic blood pressure 112 mm[Hg] 112 mm[Hg] e CW1 ([facility]) Diastolic blood pressure 74 mm[Hg] 74 mm[Hg] eCW1 ([facility]) Oxygen saturation in Arterial blood by Pulse oximetry 99 % 99 % MEDENT ([facility]) Body height 59 [in_i] 59 [in_i] MEDENT ([facility]) 4'11" Body weight 210.00 [lb_av] 210.00 [lb_av] MEDEN T ([facility]) Body mass index (BMI) [Ratio] 42.4 kg/m2 42.4 k g/m2 MEDENT ([facility]) Heart rate 101 /min 101 /min [facility] Body temperature 97.7 [degF] 97.7 [degF] MEDENT ([facility]) Body height 59 [in_i] 59 [in_i] MEDENT ([facility]) 4'11" Body weight 220.00 [lb_av] 220.00 [lb_av] MEDEN T ([facility]) Body mass index (BMI) [Ratio] 44.4 kg/m2 44.4 k g/m2 MEDENT ([facility]) Heart rate 73 /min 73 /min MEDENT ([facility]) Body temperature 97.6 [degF] 97.6 [degF] MEDENT ([facility]) Oxygen saturation in Arterial blood by Pulse oximetry 99 % 99 % MEDENT ([facility]) Body mass index (BMI) [Ratio] 43.5 kg/m2 43.5 k g/m2 MEDENT ([facility] ) Body temperature 96.8 [degF] 96.8 [degF] MEDENT ([facility] ) Body height 58 [in_i] 58 [in_i] MEDENT ([facility]) 4'10" Body weight 208.00 [lb_av] 208.00 [lb_av] MEDEN T ([facility]) Systolic blood pressure 112 mm[Hg] 112 mm[Hg] EDENT ([facility] Diastolic blood pressure 78 mm[Hg] 78 mm[Hg] MEDENT ([facility]) Heart rate 89 /min 89 /min MEDENT ([facility]) Respiratory rate 14 /min 14 /min MEDENT ( [facility]) Oxygen saturation in Arterial blood by Pulse oximetry 99 % 99 % MEDENT ([facility]) Body temperature 98.2 [degF] 98.2 [degF] MEDENT ([facility]) Body weight 210.00 [lb_av] 210.00 [lb_av] MEDEN T ([facility]) Body height 59 [in_i] 59 [in_i] MEDENT ([facility]) 4'11" Body mass index (BMI) [Ratio] 42.4 kg/m2 42.4 k g/m2 MEDENT ([facility]) Oxygen saturation in Arterial blood by Pulse oximetry 100 % 100 % MEDENT ([facility]) Body temperature 97.8 [degF] 97.8 [degF] MEDENT ([facility]) Body weight 210.00 [lb_av] 210.00 [lb_av] MEDEN T ([facility]) Body mass index (BMI) [Ratio] 42.4 kg/m2 42.4 k g/m2 MEDENT ([facility]) Systolic blood pressure 119 mm[Hg] 119 mm[Hg] M EDENT ([facility]) Diastolic blood pressure 82 mm[Hg] 82 mm[Hg] MEDENT ([facility]) Heart rate 86 /min 86 /min MEDENT ([facility]) Respiratory rate 20 /min 20 /min MEDENT ( [facility]) Body height 59 [in_i] 59 [in_i] MEDENT ([facility]) 4'11" Body height 59 [in_i] 59 [in_i] MEDENT ([facility]) 4'11" Body weight 209.00 [lb_av] 209.00 [facility]_av] [facility] Body mass index (BMI) [Ratio] 42.2 kg/m2 42.2 k g/m2 [facility] ([facility]) Gate body weight 100 [lb_av] 100 [lb_av] MEDEN T ([facility]) Body weight 94.802 kg 94.802 kg [facility] ([facility]) Patient Treatment Plan of Care Planned Activity Planned Date Details Description Data Source (s) cetirizine hydrochloride 10 MG Oral Tablet 12/14/2020 12:00:00 AM E DT eCW1 ([facility]) Ondansetron 4 MG Disintegrating Oral Tablet 12/14/2020 12:00:00 AM EDT eCW ([facility]) 24 HR venlafaxine 37.5 MG Extended Release Oral Capsul e [Effexor] 07/17/2020 12:00:00 AM EDT eCW ([facility]) 24 HR venlafaxine 37.5 MG Extended Release Oral Capsul e [Effexor] 07/17/2020 12:00:00 AM EDT eCW ([facility]) 24 HR venlafaxine 37.5 MG Extended Release Oral Capsul e [Effexor] 07/17/2020 12:00:00 AM EDT eCW1 ([facility]) 24 HR venlafaxine 37.5 MG Extended Release Oral Capsul e [Effexor] 07/17/2020 12:00:00 AM EDT eCW1 ([facility]) 24 HR venlafaxine 37.5 MG Extended Release Oral Capsul e [Effexor] 07/17/2020 12:00:00 AM EDT eCW1 ([facility]) 24 HR venlafaxine 37.5 MG Extended Release Oral Capsul e [Effexor] 07/17/2020 12:00:00 AM EDT eCW1 ([facility])
--- OUTSIDE RECORDS SUMMARY | 2021-01-01 14:12 | CCD ---
Author Author [facility] [employer] Organization [facility] [employer] Address Unknown Phone Unavailable Care Team Providers Care Credit Office Manager Name Role Phone Adrianna Cadet Unavailable PROBLEMS Type Condition ICD9-CM Code [id number] Code Onset Dates Condition S tatus W/U Status Risk SNOMED Code Notes Problem Generalized anxiety disorder F41.1 Active confirme d 89701543 ALLERGIES No Known Allergies ENCOUNTERS from 1995 to 2020-11-25 Encounter Location Date Provider Diagnosis [facility] [address] [place] [address] [place] [address] Nov, Adrianna Cadet IMMUNIZATIONS No Information SOCIAL HISTORY Tobacco Use: Social History Observation Description Date Details (start date - stop date) Former Smoker Sex Assigned At : Social History Observation Description Sex Assigned At Unknown Sexual Hx: Question Answer Notes Had sex in the last 12 months (vaginal, oral, or anal)? Yes Have you ever had an STD? No with Men only Use protection? No Tobacco Use: Question Answer Notes Are you a: former smoker REASON FOR REFERRAL No Information VITAL SIGNS No information MEDICATIONS Medication SIG (Take, Route, Frequency, Duration) Notes Start Da te End Date Status ZyrTEC Active Singulair Active Effexor XR 37.5 MG 1 capsule with food Orally Once a day for 30 day(s) July, Active PROCEDURES No Information RESULTS No Results REASON FOR VISIT c/o pain MEDICAL (GENERAL) HISTORY Type Description Date Medical [...] Name:Adrianna Cadet, 2020-12-14 0 1:00:00 PM, [address] [facility], , [place], [address], Insurance Providers Payer Name Payer Address Payer Phone Insured Name Patient Relati onship to Insured Coverage Start Date Coverage End Date BCBS [employer] P[employer] [phone] [facility] [place] [facility] [place] [id number] JOSE ANGEL SALVADOR self
--- OUTSIDE RECORDS SUMMARY | 2021-01-01 14:12 | CCD ---
Author Author [facility] [employer] Organization [facility] [employer] Address Unknown Phone Unavailable Care Team Providers Care Pharmacy Messenger Name Role Phone Adrianna Cadet Unavailable PROBLEMS Type Condition ICD9-CM Code [id number] Code Onset Dates Condition S tatus W/U Status Risk SNOMED Code Notes Problem Generalized anxiety disorder F41.1 Active confirme d [id number] ALLERGIES No Known Allergies ENCOUNTERS from 1994 to 2020-11-20 Encounter Location Date Provider Diagnosis [facility] [address] [place] [address] [place] [address] 17 Nov, 2020 Adrianna Cadet IMMUNIZATIONS No Information SOCIAL HISTORY [...] Information RESULTS No Results REASON FOR VISIT complaints MEDICAL (GENERAL) HISTORY Type Description Date Medical [...] Name:Adrianna Cadet, 2020-12-14 0 1:00:00 PM, [address] [facility], , [place], [address], Insurance Providers Payer Name Payer Address Payer Phone Insured Name Patient Relati onship to Insured Coverage Start Date Coverage End Date BCBS [facility] P[facility] [phone] [facility] [employer] [place] [id number] JOSE ANGEL SALVADOR self
--- OUTSIDE RECORDS SUMMARY | 2021-01-01 16:12 | CCD ---
Author Author [facility] Organization [facility] Address Unknown Phone Unavailable Care Team Providers Care Search Advertising Strategist Name Role Phone Romero, Maki ROLL BUILDER Unavailable Unavailable Romero, Maki ROLL BUILDER Unavailable Unavailable Romero, Maki ROLL BUILDER Unavailable Unavailable Romero, Maki ROLL BUILDER Unavailable Unavailable Romero, Maki ROLL BUILDER Unavailable Unavailable Romero, Maki ROLL BUILDER Unavailable Unavailable Romero, Maki ROLL BUILDER Unavailable Unavailable Romero, Maki ROLL BUILDER Unavailable Unavailable Rmoero, Maki ROLL BUILDER Unavailable Unavailable Romero, Maki ROLL BUILDER Unavailable Unavailable Romero, Maki ROLL BUILDER Unavailable Unavailable Romero, Maki ROLL BUILDER Unavailable Unavailable Romero, Maki ROLL BUILDER Unavailable Unavailable Fish, B Romel GARCIA Unavailable [...] Fish, B Romel GARCIA Unavailable Unavailable Fish, Brina Urena MD Unavailable Unavailable Fish, B Romel GARCIA Unavailable [...] is protected by Article 27-F of the [place] State Public Health law. If you continue you may have access to information: Regarding HIV / AIDS; Provided by facilities licensed or operated by the [facility] Office of Mental Health; or Provided by the [facility] Office for People With Developmental Disabilities. If such information is present, then the following [facility] mandated warning applies: This information has been [...] law may result in a fine or prison sentence or both. A general authorization for the release of medical or other information is NOT sufficient authorization for further disc losure. Family History Family Member Name Family Member Gender Family Member Status Date o f Status Description Data Source(s) Unknown Male Problem MEDENT ([facility]) Unknown Unknown Problem MEDENT ([facility]) Encounters Encounter Providers Location Date Indications Data Source(s ) ( ESTOB) enter Est OB [address] [place] [address] 12/14/2020 12:00:00 AM EDT eCW1 ([facility]) Unknown [address] [facility] [address] 12/10/2020 12:00:00 AM EDT eCW1 ([facility]) Unknown [address] [facility] [address] 11/25/2020 12:00:00 AM EDT eCW1 ([facility]) Unknown [address] [facility] [address] 11/20/2020 12:00:00 AM EDT eCW1 ([facility]) Unknown [address] [facility] [address] 08/21/2020 12:00:00 AM EDT eCW1 ([facility]) Office Visit Attender: Ra Rojas MD [place] [facility] 11:20:00 AM EDT MEDENT ([facility] ) Outpatient [address] [facility] [id number] 07/17/2020 12:00:00 AM EDT eCW1 ([facility]) Outpatient Attender: Ra Rojas MD [place] [facility] 01:00:00 PM EDT MEDENT ([facility] ) Outpatient Attender: Ra Rojas MD [place] [facility] 11:30:00 AM EDT MEDENT ([facility] ) Outpatient Attender: MATHEW GRIJALVA Medical [facility]in g 06/08/2020 09:00:00 AM EDT MEDENT ([facility]) Outpatient Attender: Romel Ewing MD Physical Therapy 05/14/2020 0 7:30:00 AM EST MEDENT ([facility]) Outpatient Attender: Romel Ewing MD Physical Therapy 04/07/2020 1 2:00:00 PM EST MEDENT ([facility]) Outpatient Attender: KATHERINE mello 03/18/2020 07:15:00 AM EST MEDENT ([facility]) Outpatient Attender: MATHEW GRIJALVA Medical [facility] 03/09/2020 07:30:00 AM EST MEDENT ([facility]) Outpatient Attender: Maki lindsey 02/13/2020 04:00:00 PM EST MEDENT ([facility]) Immunizations Vaccine Date Status Description Data Source(s) COVID-19 VACCINE Moderna 05/14/2020 12:00:00 AM EST completed [facility] Vaccine Series Complete: YESThis Data wa s Submitted to [facility] [employer]. COVID-19 VACCINE Moderna 04/16/2020 12:00:00 AM EST completed [facility] Vaccine Series Complete: NOThis Data was Submitted to [facility] [employer]. Medications Medication Brand Name Start Date Product Form Dose Route Admi nistrative Instructions Pharmacy Instructions Status Indications Reaction Description Data Source(s) Ondansetron 4 MG Disintegrating Oral Tablet Ondansetron 4 MG 12/14/2020 12:00:00 AM EDT 1.0 {tablet_on_the_tongue_and_allow_to_dissolve} active Ondansetron 4 MG eCW1 ([facility]) cetirizine hydrochloride 10 MG Oral Tablet Cetirizine HCl 10 MG Cetirizine HCl 10 MG 12/14/2020 12:00:00 AM EDT 1.0 {tablet} activ e Cetirizine HCl 10 MG eCW1 ([facility]) Cephalexin 500 MG Oral Capsule [Keflex] Keflex 07/27/2020 12:00:0 0 AM EDT ORAL completed MEDENT ([facility]) 24 HR venlafaxine 37.5 MG Extended Relea se Oral Capsule [Effexor] Effexor XR 37.5 MG Effexor XR 37.5 MG 07/17/2020 12:00:00 AM EDT 1.0 {cap sule_with_food} active Effexor XR 37.5 MG e CW1 ([facility]) 24 HR venlafaxine 37.5 MG Extended Relea se Oral Capsule [Effexor] Effexor XR 37.5 MG Effexor XR 37.5 MG 07/17/2020 12:00:00 AM EDT 1.0 {cap sule_with_food} active Effexor XR 37.5 MG e CW1 ([facility]) 24 HR venlafaxine 37.5 MG Extended Relea se Oral Capsule [Effexor] Effexor XR 37.5 MG Effexor XR 37.5 MG 07/17/2020 12:00:00 AM EDT 1.0 {cap sule_with_food} active Effexor XR 37.5 MG e CW1 ([facility]) 24 HR venlafaxine 37.5 MG Extended Relea se Oral Capsule [Effexor] Effexor XR 37.5 MG Effexor XR 37.5 MG 07/17/2020 12:00:00 AM EDT 1.0 {cap sule_with_food} active Effexor XR 37.5 MG e CW1 ([facility]) 24 HR venlafaxine 37.5 MG Extended Relea se Oral Capsule [Effexor] Effexor XR 37.5 MG Effexor XR 37.5 MG 07/17/2020 12:00:00 AM EDT 1.0 {cap sule_with_food} active Effexor XR 37.5 MG e CW1 ([facility]) 24 HR venlafaxine 37.5 MG Extended Relea se Oral Capsule [Effexor] Effexor XR 37.5 MG Effexor XR 37.5 MG 07/17/2020 12:00:00 AM EDT 1.0 {cap sule_with_food} active Effexor XR 37.5 MG e CW1 ([facility]) Acetaminophen 325 MG / Oxycodone Hydrochloride 5 MG Or al Tablet Oxycodone-Acetaminophen 07/14/2020 12:00:00 AM EDT ORAL completed MEDENT ([facility]) Zolpidem tartrate 10 MG Oral Tablet Zolpidem Tartrate 07/04 12:00:00 AM EDT completed MEDENT ([facility]) Naproxen 500 MG Oral Tablet Naproxen 07/14/2020 12:00:00 AM EDT ORAL active MEDENT ([facility]) Cephalexin 500 MG Oral Capsule Cephalexin 07/14/2020 12:00:00 AM EDT ORAL completed MEDENT ([facility]) Ibuprofen 800 MG Oral Tablet Ibuprofen 03/18/2020 12:00:00 AM EST active MEDENT ([facility]) Cyclobenzaprine hydrochloride 10 MG Oral Tablet Cyclobenzapr ine HCL 03/18/2020 12:00:00 AM EST active M EDENT ([facility]) Prednisone 20 MG Oral Tablet Prednisone 02/13/2020 12:00:00 AM EST completed MEDENT ([facility]) tizanidine 4 MG Oral Tablet Tizanidine HCL 02/13/2020 12:00:00 AM EST completed MEDENT ([facility]) Insurance Providers Payer name Policy type / Coverage type Policy ID Covered alliance party ID Covered alliance party's relationship to aldridge Policy [place] Plan Information NON CLIENT AGREEMENTS SPEC ID [id number] Patient SPEC ID [id number] NON CLIENT AGREEMENTS UNAVAILABLE Patient UNAVAILABLE [facility] (26) [id number] BC/BS PPO/EPO (28) [id number] [facility] [id number] Self [id number] BCBS/Blue Card Commercial [id number] Family Dependent [id number] BCBS/Blue Card Commercial [id number] Family Dependent [id number] BCBS/Blue Card Commercial [id number] Family Dependent [id number] [place] BCBS B [id number] S RRF [id number] BCBS/Blue Card Commercial [id number] Family Dependent [id number] BCBS/Blue Card Commercial [id number] Family Dependent [id number] BCBS/Blue Card Commercial [id number] Family Dependent [id number] BCBS/Blue Card Commercial [id number] Family Dependent [id number] BCBS/Blue Card Commercial [id number] Self [id number] BLUE CROSS OUT OF STATE [id number] Parent [id number] SELF PAY 2 UNAVAILABLE 1 UNAVAILA BLE BC BLUE CARD 1 [id number] RRFA [id number] [place] PPO 302/307 [id number] BLUE CROSS OUT OF STATE [id number] PA [id number] [place]BS [place] PPO 302/307 [id number] SP [id number] [place] BCBS B [id number] O VYA [id number] [facility] RASHAD ESPINO PPO 302/307 [id number] Problems, Conditions, and Diagnoses Code Display Name Description Problem Type Effective Dates Data Source(s) Z34.80 care Supervision of other normal Olena moreno 12/10/2020 12:00:00 AM EDT eCW1 ([facility]) 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 Problem 08/04/2020 12:00:00 AM EDT MEDENT ([facility]) F41.1 [id number] Generalized anxiety disorder Problem 021 12:00:00 AM EDT eCW1 ([facility]) S76.011A Strain of flexor muscle of hip Strain of flexor muscle of hip Problem 06/15/2020 12:00:00 AM EDT MEDENT ([facility]) 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 Articular cartilage disorder of the pelvic region and thigh Problem 06/04 12:00:00 AM EDT MEDENT ([facility]) Surgeries/Procedures Procedure Description Date Indications Data Source(s) ARTHRS HIP DEBRIDEMENT/SHAVING ARTICULAR CRTLG 021 12:00:00 AM EDT MEDENT ([facility]) ARTHRS HIP DEBRIDEMENT/SHAVING ARTICULAR CRTLG 021 12:00:00 AM EDT MEDENT ([facility]) ARTHROSCOPY HIP SURGICAL W/SYNOVECTOMY 07/21/2020 12:0 0:00 AM EDT MEDENT ([facility]) ARTHROSCOPY HIP SURGICAL W/SYNOVECTOMY 07/21/2020 12:0 0:00 AM EDT MEDENT ([facility]) Arthrocentesis/Aspiration/Inj Major Joint Or Bursa W/ US Pradip dance 06/15/2020 12:00:00 AM EDT MEDENT ([facility] ) Therapeutic, Prophylactic Or Diagnostic Injection Subq/Im 03/18/2020 12:00:00 AM EST MEDENT ([facility]) Results ID Date Data Source PAP REQUEST FOR SERVICE 07/17/2020 12:00:00 AM EDT eCW1 ([facility]) Name Value Range Interpretation Code Description Data Iesha rce(s) Supporting Document(s) PAP REQUEST FOR SERVICE eCW1 ( [facility]) ID Date Data Source [id number] 07/17/2020 12:00:00 AM EDT [facility] Name Value Range Interpretation Code Description Data Iesha rce(s) Supporting Document(s) SARS-CoV2 Rapid Antigen Negative [facility] This lab was ordered by [facility] and reported by Clovis Watkins MD. ID Date Data Source [id number] 05/07/2020 12:00:00 AM EST [facility] Romel Ewing MD Patient Name: MARIAJOSE SALVADOR [facility] 1995[facility] [address] Date of Exam: 05/07/2020#: Fax: [phone] EXAM: MRI RIGHT HIP ARTHROGRAMCLINICAL INFORMATION: Right hip pain, rule out labral tear.TECHNIQUE:Pre and post contrast 3T MRI of the right hip with right hip arthrogram wasperformed utilizing various sequences. The hip arthrogram injection underfluoroscopic guidance was performed by Jarred Joel [facility], under mydirect supervision.Comparison xray 03/18/2020.FINDINGS:The whole pelvic [...] withoutfluid collection to suggest bursitis.Accredited by the [employer] in MR.Rubens Krishna, RAINERJL/George you for referring JOSE ANGEL SALVADOR to our office. Electronically Signed - RUBENS KRISHNA MD 05/08/20 11:54 Name Value Range Interpretation Code Description Data Iesha rce(s) Supporting Document(s) ID Date Data Source [id number] 05/07/2020 12:00:00 AM [facility] Romel Ewing MD Patient Name: JOSE ANGEL SALVADOR[address] [facility] 1995[facility] [address] Date of Exam: [facility]#: Fax: [phone] EXAM: HIP ARTHROGRAM WITH INJECTIONRIGHT [...] is a 75% reduction in radiation.Rubens Krishna, MELISSA/jmcThank you for referring JOSE ANGEL SALVADOR to our office. Electronically Signed - RUBENS KRISHNA MD 05/07/20 17:30 Name Value Range Interpretation Code Description Data Iesha rce(s) Supporting Document(s) ID Date Data Source [id number] 03/23/2020 12:00:00 AM EST [facility] Name Value Range Interpretation Code Description Data Iesha rce(s) Supporting Document(s) SARS-CoV2 Rapid Antigen Negative [facility] This lab was ordered by [facility] and reported by Clovis Watkins MD. Procedure Social History Code Duration Value Status Description Data Source(s ) Smoking 12/14/2020 12:00:00 AM EDT Former Smoker completed Former Smoker eCW1 ([facility]) Smoking 12/10/2020 12:00:00 AM EDT Former Smoker completed Former Smoker eCW1 ([facility]) Smoking 09/02/2020 12:00:00 AM EDT Former Smoker completed Former Smoker eCW1 ([facility]) Smoking 09/02/2020 12:00:00 AM EDT Former Smoker completed Former Smoker eCW1 ([facility]) Smoking 08/04/2020 12:00:00 AM EDT Patient is a former smoker completed Patient is a former smoker MEDENT ([facility]) Smoking 07/17/2020 12:00:00 AM EDT Former Smoker completed Former Smoker eCW1 ([facility]) Smoking 07/17/2020 12:00:00 AM EDT Former Smoker completed Former Smoker eCW1 ([facility]) Vital Signs ID Date Data Source UNK Name Value Range Interpretation Code Description Data Source(s) Body weight 230.2 [lb_av] 230.2 [lb_av] eCW1 ([facility]) Body mass index (BMI) [Ratio] 46.495 kg/m2 46.4 95 kg/m2 [facility] ([facility]) Body height 59 [in_i] 59 [in_i] W1 ([facility]) Body weight 104.42 kg 104.42 kg W1 ([facility]) Systolic blood pressure 120 mm[Hg] 120 mm[Hg] e CW1 ([facility]) Diastolic blood pressure 72 mm[Hg] 72 mm[Hg] eCW1 ([facility]) Body mass index (BMI) [Ratio] 42.4 kg/m2 42.4 k g/m2 MEDENT ([facility]) Body height 59 [in_i] 59 [in_i] MEDENT ([facility]) 4'11" Body weight 210.00 [lb_av] 210.00 [lb_av] MEDEN T ([facility]) Heart rate 112 /min 112 /min [facility] Body temperature 96.9 [degF] 96.9 [degF] MEDENT ([facility]) Oxygen saturation in Arterial blood by Pulse oximetry 99 % 99 % MEDENT ([facility]) Body weight 217 [lb_av] 217 [lb_av] eCW1 ([facility]) Body height 59 [in_i] 59 [in_i] eCW1 ([facility]) Body mass index (BMI) [Ratio] 43.82 kg/m2 43.82 kg/m2 W1 ([facility]) Systolic blood pressure 112 mm[Hg] 112 mm[Hg] e CW1 ([facility]) Diastolic blood pressure 74 mm[Hg] 74 mm[Hg] eCW1 ([facility]) Oxygen saturation in Arterial blood by Pulse oximetry 99 % 99 % MEDENT ([facility]) Body height 59 [in_i] 59 [in_i] MEDENT ([facility]) 4'11" Body weight 210.00 [lb_av] 210.00 [lb_av] MEDEN T ([facility]) Body mass index (BMI) [Ratio] 42.4 kg/m2 42.4 k g/m2 MEDENT ([facility]) Heart rate 101 /min 101 /min [facility] Body temperature 97.7 [degF] 97.7 [degF] MEDENT ([facility]) Body height 59 [in_i] 59 [in_i] MEDENT ([facility]) 4'11" Body weight 220.00 [lb_av] 220.00 [lb_av] MEDEN T ([facility]) Body mass index (BMI) [Ratio] 44.4 kg/m2 44.4 k g/m2 MEDENT ([facility]) Heart rate 73 /min 73 /min MEDENT ([facility]) Body temperature 97.6 [degF] 97.6 [degF] MEDENT ([facility]) Oxygen saturation in Arterial blood by Pulse oximetry 99 % 99 % MEDENT ([facility]) Body mass index (BMI) [Ratio] 43.5 kg/m2 43.5 k g/m2 MEDENT ([facility]) Body temperature 96.8 [degF] 96.8 [degF] MEDENT ([facility]) Body height 58 [in_i] 58 [in_i] MEDENT ([facility]) 4'10" Body weight 208.00 [lb_av] 208.00 [lb_av] MEDEN T ([facility] Systolic blood pressure 112 mm[Hg] 112 mm[Hg] EDENT ([facility]) Diastolic blood pressure 78 mm[Hg] 78 mm[Hg] MEDENT ([facility]) Heart rate 89 /min 89 /min MEDENT ([facility]) Respiratory rate 14 /min 14 /min MEDENT ( [facility]) Oxygen saturation in Arterial blood by Pulse oximetry 99 % 99 % MEDENT ([facility]) Body temperature 98.2 [degF] 98.2 [degF] MEDENT ([facility]) Body weight 210.00 [lb_av] 210.00 [lb_av] MEDEN T ([facility]) Body height 59 [in_i] 59 [in_i] MEDENT ([facility]) 4'11" Body mass index (BMI) [Ratio] 42.4 kg/m2 42.4 k g/m2 MEDENT ([facility]) Oxygen saturation in Arterial blood by Pulse oximetry 100 % 100 % MEDENT ([facility]) Body temperature 97.8 [degF] 97.8 [degF] MEDENT ([facility]) Body weight 210.00 [lb_av] 210.00 [lb_av] MEDEN T ([facility]) Body mass index (BMI) [Ratio] 42.4 kg/m2 42.4 k g/m2 MEDENT ([facility]) Body height 59 [in_i] 59 [in_i] MEDENT ([facility]) 4'11" Systolic blood pressure 119 mm[Hg] 119 mm[Hg] M EDENT ([facility]) Diastolic blood pressure 82 mm[Hg] 82 mm[Hg] MEDENT ([facility]) Heart rate 86 /min 86 /min MEDENT ([facility]) Respiratory rate 20 /min 20 /min MEDENT ( [facility]) Body height 59 [in_i] 59 [in_i] [facility] 4[facility]" Body weight 209.00 [lb_av] 209.00 [lb_av] MEDEN T ([facility]) Body mass index (BMI) [Ratio] 42.2 kg/m2 42.2 k g/m2 MEDENT ([facility]) [place] body weight 100 [lb_av] 100 [lb_av] MEDEN T ([facility]) Body weight 94.802 kg 94.802 kg [facility] Patient Treatment Plan of Care Planned Activity Planned Date Details Description Data Source (s) cetirizine hydrochloride 10 MG Oral Tablet 12/14/2020 12:00:00 AM E DT eCW1 ([facility]) Ondansetron 4 MG Disintegrating Oral Tablet 12/14/2020 12:00:00 AM EDT eCW1 ([facility]) 24 HR venlafaxine 37.5 MG Extended Release Oral Capsul e [Effexor] 07/17/2020 12:00:00 AM EDT eCW1 ([facility]) 24 HR venlafaxine 37.5 MG Extended Release Oral Capsul e [Effexor] 07/17/2020 12:00:00 AM EDT eCW1 ([facility]) 24 HR venlafaxine 37.5 MG Extended Release Oral Capsul e [Effexor] 07/17/2020 12:00:00 AM EDT eCW1 ([facility]) 24 HR venlafaxine 37.5 MG Extended Release Oral Capsul e [Effexor] 07/17/2020 12:00:00 AM EDT eCW1 ([facility]) 24 HR venlafaxine 37.5 MG Extended Release Oral Capsul e [Effexor] 07/17/2020 12:00:00 AM EDT eCW1 ([facility]) 24 HR venlafaxine 37.5 MG Extended Release Oral Capsul e [Effexor] 07/17/2020 12:00:00 AM EDT eCW1 ([facility])
--- NOTE | 2021-01-01 16:36 | REP ---
INDICATION: vaginal bleeding, 11 weeks . COMPARISON: None. TECHNIQUE: Transabdominal ultrasound FINDINGS: Within the uterus there is an anechoic structure with increased echoes surrounding it consistent with a decidual reaction. Within the gestational sac there is echogenic material consistent with a pole the mean crown-rump length measurement of which is consistent with an 11 week 0 day gestational age. Based on that the estimated date of delivery is 07/23/2021. Doppler interrogation of the pole shows a heart rate of 167 beats per minute. No chorionic or subchorionic abnormality was noted. Neither maternal ovary was identified due to the patient's intestinal gas pattern. IMPRESSION: Early OB ultrasound as described above. <Electronically signed by Viktor Oleary > 01/01/21 1651
[2021-01-01 17:34] LABS: APPEARANCE, URINE CLEAR (CLEAR); BACTERIA, URINE AUTO NEGATIVE (NEGATIVE); BILIRUBIN, URINE AUTO NEGATIVE (NEGATIVE); BLOOD, URINE BLOOD NEGATIVE (NEGATIVE); COLOR, URINE YELLOW (YELLOW); GLUCOSE, URINE (UA) AUTO NEGATIVE (NEGATIVE); KETONE, URINE AUTO NEGATIVE (NEGATIVE); LEUKOCYTE ESTERASE, URINE AUTO NEGATIVE (NEGATIVE); MUCUS, URINE SMALL (NEGATIVE); NITRITE, URINE AUTO NEGATIVE (NEGATIVE); PROTEIN, URINE AUTO NEGATIVE (NEGATIVE); RBC, URINE AUTO 1 /HPF (0-3); SPECIFIC GRAVITY URINE AUTO 1.013 (1.002-1.035); SQUAMOUS EPITHELIAL CELL UR AU 2 /HPF (0-6); UROBILINOGEN, URINE AUTO 0.2 mg/dL (0.0-2.0); WBC, URINE AUTO 0 /HPF (0-3)
[2021-01-01 17:43] LABS: BASO % 0.4 % (0.0-1.0); EOS # 0.1 10^3/uL (0.0-0.5); EOS % 0.6 % (0.0-3.0); HEMATOCRIT 44.2 % (36.0-47.0); HEMOGLOBIN 13.5 g/dl (12.0-15.5); LYMPH # 2.5 10^3/uL (1.5-5.0); LYMPH % 25.7 % (24.0-44.0); MEAN CORPUSCULAR HEMOGLOBIN 25.9 pg (27.0-33.0); MEAN CORPUSCULAR HGB CONC 30.5 g/dl (32.0-36.5); MEAN CORPUSCULAR VOLUME 84.7 fl (80.0-96.0); MONO # 0.5 10^3/uL (0.0-0.8); MONO % 5.4 % (2.0-8.0); NEUTROPHILS # 6.7 10^3/uL (1.5-8.5); NEUTROPHILS % 67.4 % (36.0-66.0); PLATELET COUNT, AUTOMATED 137 10^3/uL (150-450); RED BLOOD COUNT 5.22 10^6/uL (4.00-5.40); WHITE BLOOD COUNT 9.9 10^3/uL (4.0-10.0)
[2021-01-01 18:28] LABS: BLOOD UREA NITROGEN 9 MG/DL (7-18); CALCIUM LEVEL 9.7 MG/DL (8.5-10.1); CARBON DIOXIDE LEVEL 25 MEQ/L (21-32); CHLORIDE LEVEL 106 MEQ/L (98-107); CREATININE FOR GFR 0.62 MG/DL (0.55-1.30); GLOMERULAR FILTRATION RATE > 60.0 (>60); GLUCOSE, FASTING 85 MG/DL (70-100); HCG, SERUM QUANTITATIVE 54583 MIU/ML; POTASSIUM SERUM 3.7 MEQ/L (3.5-5.1); SODIUM LEVEL 135 MEQ/L (136-145)
[2021-01-01 19:11] VITALS: BP 130/66
== END 2021-01-01 19:12 | disposition home or self-care (01) ==
LOC: M ED 14:05
DX: O99.891 Other specified diseases and conditions complicating pregnancy (principal); N93.9 Abnormal uterine and vaginal bleeding, unspecified; R10.2 Pelvic and perineal pain; O09.291 Supervision of pregnancy with other poor reproductive or obstetric history, first trimester; Z3A.11 11 weeks gestation of pregnancy; Z79.899 Other long term (current) drug therapy; Z98.890 Other specified postprocedural states

== ENCOUNTER → 2021-01-12 | Outpatient (CLI) | payer BC | LOC: M PLALAB 08:01 | PROVIDERS: ATTEND Obstetrics & Gynecology | DX: Z34.81 Encounter for supervision of other normal pregnancy, first trimester (principal); Z3A.00 Weeks of gestation of pregnancy not specified ==

== ENCOUNTER → 2021-03-03 | Outpatient (CLI) | payer BC ==
--- NOTE | 2021-03-03 08:54 | REP ---
INDICATION: ANATOMY COMPARISON: 01/01/2021 TECHNIQUE: Transabdominal obstetrical ultrasound with color Doppler evaluation. FINDINGS: Examination demonstrates a single live intrauterine in cephalic presentation. motion is identified by technologist. Placenta is noted posterior and grade 0 without evidence for placenta previa or abruption. Amniotic fluid volume is normal. Cervix measures 3.8 cm in length and appears closed.. Selected gestational age: Twenty weeks 1 day with MAU 07/20/2021. Gestational age by current measurements 20 weeks 1 day with MAU 07/20/2021. FHR equals 133 beats per minute. Estimated weight 358 grams (66thpercentile). Anatomical assessment demonstrates normal structures including cranium, choroid plexus, cavum, cerebellum/posterior fossa, facial features, lungs, diaphragm, stomach, cord insertion/three-vessel cord, kidneys/bladder, spine, and extremities. IMPRESSION: 1. Single live intrauterine in cephalic presentation demonstrating appropriate estimated weight and growth. 2. Limited evaluation of the heart/ventricular outflow tracts. Remainder of the anatomical assessment is complete and normal. <Electronically signed by Carlos Eduardo Sher > 03/03/21 [id number]
== END ==
LOC: M WHC 07:05
PROVIDERS: ATTEND Obstetrics & Gynecology
DX: Z36.9 Encounter for antenatal screening, unspecified (principal); Z3A.20 20 weeks gestation of pregnancy

== ENCOUNTER → 2021-03-17 | Outpatient (CLI) | payer BC | LOC: M WHC 13:17 | PROVIDERS: ATTEND Obstetrics & Gynecology | DX: O99.212 Obesity complicating pregnancy, second trimester (principal) ==

== ENCOUNTER → 2021-04-14 | Outpatient (CLI) | payer BC ==
[2021-04-14 10:44] LABS: HEMATOCRIT 34.7 % (36.0-47.0); HEMOGLOBIN 10.8 g/dl (12.0-15.5); MEAN CORPUSCULAR HEMOGLOBIN 26.3 pg (27.0-33.0); MEAN CORPUSCULAR HGB CONC 31.1 g/dl (32.0-36.5); MEAN CORPUSCULAR VOLUME 84.4 fl (80.0-96.0); PLATELET COUNT, AUTOMATED 191 10^3/uL (150-450); RED BLOOD COUNT 4.11 10^6/uL (4.00-5.40); WHITE BLOOD COUNT 10.2 10^3/uL (4.0-10.0)
== END ==
LOC: M PLALAB 07:50
PROVIDERS: ATTEND Advanced Practice Midwife
DX: O99.212 Obesity complicating pregnancy, second trimester (principal)

== ENCOUNTER → 2021-04-15 | Outpatient (CLI) | payer BC | LOC: M WHC 10:17 | PROVIDERS: ATTEND Obstetrics & Gynecology | DX: O99.212 Obesity complicating pregnancy, second trimester (principal); Z3A.26 26 weeks gestation of pregnancy ==

== ENCOUNTER → 2021-04-16 | Outpatient (CLI) | payer BC | LOC: M LAB 07:10 | PROVIDERS: ATTEND Advanced Practice Midwife | DX: Z36.89 Encounter for other specified antenatal screening (principal); O99.810 Abnormal glucose complicating pregnancy; Z3A.00 Weeks of gestation of pregnancy not specified ==

== ENCOUNTER 2021-05-13 16:31 | Outpatient (CLI) | payer BC ==
[~2021-05-13] VITALS: Ht 149.9 cm; Wt 108.9 kg
[2021-05-13 16:52] VITALS: BP 120/65
[2021-05-13] MEDS ORDERED: TUMS500C PO (17:01)
[2021-05-13] MEDS ORDERED: PRENTAB9 PO (17:01)
[2021-05-13] MEDS ORDERED: ACET-907 PO (17:01)
[2021-05-13] MEDS ORDERED: HOME MED LIST COMPLETE! XX SCH (17:05)
== END 2021-05-13 17:50 | disposition home or self-care (01) ==
LOC: M LDO 16:31
PROVIDERS: ATTEND Specialist
DX: O26.893 Other specified pregnancy related conditions, third trimester (principal); R10.2 Pelvic and perineal pain; Z3A.30 30 weeks gestation of pregnancy
CPT/HCPCS: 59025; G0378; G0463

== ENCOUNTER → 2021-05-18 | Outpatient (CLI) | payer BC ==
[~2021-05-18] MED LIST changes: +ACET-907 PO; +PRENTAB9 PO; +TUMS500C PO
== END ==
LOC: M WHC 10:43
PROVIDERS: ATTEND Obstetrics & Gynecology
DX: O26.843 Uterine size-date discrepancy, third trimester (principal); Z3A.32 32 weeks gestation of pregnancy

== ENCOUNTER → 2021-06-22 | Outpatient (REF) | payer BC | LOC: M PLALAB 08:09 | PROVIDERS: ATTEND Obstetrics & Gynecology | DX: Z36.89 Encounter for other specified antenatal screening (principal); Z3A.36 36 weeks gestation of pregnancy ==

== ENCOUNTER → 2021-06-30 | Outpatient (CLI) | payer BC | LOC: M WHC 13:13 | PROVIDERS: ATTEND Obstetrics & Gynecology | DX: O26.849 Uterine size-date discrepancy, unspecified trimester (principal); Z3A.36 36 weeks gestation of pregnancy ==

== ENCOUNTER 2022-01-27 18:48 | Emergency (ER) | payer BC ==
[~2022-01-27] VITALS: Ht 149.9 cm; Wt 107.0 kg
[~2022-01-27 18:48] MED LIST changes: +COLA100C5 PO; +OXYC1CAP PO
[2022-01-27] MEDS ORDERED: FLON1SPR NARES (20:41)
[2022-01-27 21:16] VITALS: BP 126/82
== END 2022-01-27 21:17 | disposition home or self-care (01) ==
LOC: M ED 18:48
DX: H74.8X3 Other specified disorders of middle ear and mastoid, bilateral (principal); F41.9 Anxiety disorder, unspecified

== ENCOUNTER → 2023-08-16 | Outpatient (REF) | payer BC ==
[~2023-08-16] MED LIST changes: +FLON1SPR NARES; -OXYC1CAP PO; +OXYC1CAP2 PO
[2023-08-18 13:42] LABS: HPV APTIMA Not Detected (Not Detected)
== END ==
LOC: M SFHCWAGY 14:52
PROVIDERS: ATTEND Nurse Practitioner Family
DX: Z12.4 Encounter for screening for malignant neoplasm of cervix (principal)
CPT/HCPCS: 87624; G0123

== ENCOUNTER → 2023-12-28 | Outpatient (CLI) | payer BC ==
[2023-12-28 13:24] LABS: LDH LACTATE DEHYDROGENASE 178 U/L (120-246)
[2023-12-28 13:25] LABS: ALT/SGPT 13 U/L (7.0-40); AST/SGOT 9 U/L (<34); BILIRUBIN,TOTAL 0.5 MG/DL (0.3-1.2); CREATININE FOR GFR 0.43 MG/DL (0.55-1.30); GLOMERULAR FILTRATION RATE > 60.0 (>60)
[2023-12-28 13:42] LABS: HEMATOCRIT 39.5 % (36.0-47.0); HEMOGLOBIN 13.1 g/dl (12.0-15.5); MEAN CORPUSCULAR HEMOGLOBIN 27.7 pg (27.0-33.0); MEAN CORPUSCULAR HGB CONC 33.2 g/dl (32.0-36.5); MEAN CORPUSCULAR VOLUME 83.5 fl (80.0-96.0); PLATELET COUNT, AUTOMATED 190 10^3/uL (150-450); RED BLOOD COUNT 4.73 10^6/uL (4.00-5.40); WHITE BLOOD COUNT 8.7 10^3/uL (4.0-10.0)
[2023-12-28 13:58] LABS: HIV 1&2 SCREEN NEGATIVE (NEGATIVE)
[2023-12-28 14:02] LABS: HEMOGLOBIN A1c 4.5 % (4.0-6.0)
[2023-12-28 14:06] LABS: HEPATITIS C VIRUS ABY INDEX 0.41 INDEX (<0.8)
[2023-12-28 14:07] LABS: URIC ACID 3.5 MG/DL (3.1-7.8)
== END ==
LOC: M PLALAB 10:32
PROVIDERS: ATTEND Advanced Practice Midwife
DX: O99.210 Obesity complicating pregnancy, unspecified trimester (principal); O34.211 Maternal care for low transverse scar from previous cesarean delivery; Z3A.00 Weeks of gestation of pregnancy not specified

== ENCOUNTER → 2023-12-28 | Outpatient (REF) | payer BC ==
[2023-12-28 13:46] LABS: CREATININE,RANDOM URINE 22.3 MG/DL
[2023-12-28 13:48] LABS: TOTAL PROTEIN,RANDOM URINE < 6.0 MG/DL (0.0-14.0)
[2023-12-28 14:45] LABS: GC DNA AMPLIFICATION NEGATIVE (NEGATIVE)
== END ==
LOC: M PLALAB 10:48
PROVIDERS: ATTEND Advanced Practice Midwife
DX: O34.211 Maternal care for low transverse scar from previous cesarean delivery (principal); O99.210 Obesity complicating pregnancy, unspecified trimester; Z3A.00 Weeks of gestation of pregnancy not specified

== ENCOUNTER → 2024-01-03 | Outpatient (CLI) | payer BC | LOC: M PLALAB 09:38 | PROVIDERS: ATTEND Advanced Practice Midwife | DX: O34.211 Maternal care for low transverse scar from previous cesarean delivery (principal); Z3A.00 Weeks of gestation of pregnancy not specified ==

== ENCOUNTER → 2024-03-29 | Outpatient (CLI) | payer BC | LOC: M WHC 06:50 | PROVIDERS: ATTEND Nurse Practitioner Family | DX: Z34.82 Encounter for supervision of other normal pregnancy, second trimester (principal) ==

== ENCOUNTER → 2024-04-22 | Outpatient (CLI) | payer BC ==
[2024-04-22 14:02] LABS: HEMATOCRIT 35.9 % (36.0-47.0); HEMOGLOBIN 11.6 g/dl (12.0-15.5); MEAN CORPUSCULAR HEMOGLOBIN 27.8 pg (27.0-33.0); MEAN CORPUSCULAR HGB CONC 32.3 g/dl (32.0-36.5); MEAN CORPUSCULAR VOLUME 86.1 fl (80.0-96.0); PLATELET COUNT, AUTOMATED 191 10^3/uL (150-450); RED BLOOD COUNT 4.17 10^6/uL (4.00-5.40)
[2024-04-22 14:33] LABS: GLUCOSE CHALLENGE TEST 1 HOUR 126 MG/DL (LESS THAN 140)
[2024-04-22 15:03] LABS: GC DNA AMPLIFICATION NEGATIVE (NEGATIVE)
[2024-04-22 15:10] LABS: HIV 1&2 SCREEN NEGATIVE (NEGATIVE)
[2024-04-22 15:18] LABS: HEPATITIS C VIRUS ABY INDEX 0.37 INDEX (<0.8)
== END ==
LOC: M PLALAB 08:57
PROVIDERS: ATTEND Nurse Practitioner Family
DX: Z34.80 Encounter for supervision of other normal pregnancy, unspecified trimester (principal); Z3A.00 Weeks of gestation of pregnancy not specified

== ENCOUNTER 2024-07-15 05:10 | Inpatient (IN) | payer BC ==
[~2024-07-15] VITALS: Ht 149.9 cm; Wt 99.3 kg
[2024-07-15] VITALS (10 sets, daily range): BP systolic 107–122; BP diastolic 54–71; TEMP 97.6; O2SAT 96–99
[~2024-07-15 05:10] MED LIST changes: +ECOT81TA5 PO
[2024-07-15] MEDS: LACTATED RINGER'S 1000 ML IV STA (05:14)
[2024-07-15] MEDS ORDERED: LR 1,000 ML IV SCH (05:15)
[2024-07-15 06:20] LABS: HEMATOCRIT 34.4 % (36.0-47.0); MEAN CORPUSCULAR HEMOGLOBIN 26.1 pg (27.0-33.0); MEAN CORPUSCULAR VOLUME 81.7 fl (80.0-96.0); PLATELET COUNT, AUTOMATED 188 10^3/uL (150-450); RED BLOOD COUNT 4.21 10^6/uL (4.00-5.40); WHITE BLOOD COUNT 9.3 10^3/uL (4.0-10.0)
[2024-07-15 07:15] LABS: HIV 1&2 SCREEN NEGATIVE (NEGATIVE)
[2024-07-15] MEDS ORDERED: MORPHINE PRES-FREE INJ 10 MG/10 ML VIAL As Ordered ONE (07:15)
[2024-07-15] MEDS ORDERED: OXYTOCIN 30UNITS IN 0.9% NaCl 500ML IV BAG As Ordered ONE (07:16)
[2024-07-15] MEDS ORDERED: ONDANSETRON 4MG 2ML VIAL As Ordered ONE (07:16)
[2024-07-15] MEDS ORDERED: KETOROLAC 30 MG/ML 1ML VIAL As Ordered ONE (07:16)
[2024-07-15] MEDS: BICITRA 30ML SOLN UDC PO ONE (07:21)
[2024-07-15] MEDS: ceFAZolin SODIUM 2 GM in DEXTROSE 5% (D5W) ADV/MINI-BAG 50 ML IV ONE (07:21)
[2024-07-15 07:23] LABS: HEPATITIS C VIRUS ABY INDEX 0.49 INDEX (<0.8)
[2024-07-15] MEDS ORDERED: ePHEDrine SULFATE 25 MG/5 ML(5MG/ML) SYRINGE As Ordered ONE (08:08)
[2024-07-15] MEDS ORDERED: PHENYLephrine 500MCG 5ML (100MCG/ML) SYRINGE As Ordered ONE (08:08)
[2024-07-15 08:16] LABS: CORD GAS ABE A -2.8; CORD GAS HCO3 A 25.2 MMOL/L; CORD GAS O2 SAT A 57.1 %; CORD GAS PCO2 A 56.5 mmHg; CORD GAS PH A 7.267 UNITS; CORD GAS PO2 A 24.8 mmHg; CORD GAS SBC A 21.2 MMOL/L; CORD GAS TCO2 A 26.9 MMOL/L
[2024-07-15 08:17] LABS: CORD GAS ABE V -2.1; CORD GAS HCO3 V 22.4 MMOL/L; CORD GAS O2 SAT V 87.6 %; CORD GAS PCO2 V 37.7 mmHg; CORD GAS PH V 7.392 UNITS; CORD GAS PO2 V 39.8 mmHg; CORD GAS SBC V 22.5 MMOL/L; CORD GAS TCO2 V 23.6 MMOL/L
[2024-07-15] MEDS ORDERED: DOCUSATE SODIUM 100MG CAPSULE PO PRN (08:35)
[2024-07-15] MEDS ORDERED: SIMETHICONE 80MG CHEW TAB PO PRN (08:35)
[2024-07-15] MEDS ORDERED: PERCOCET 5MG/325MG TAB PO PRN ×2 (08:35)
[2024-07-15] MEDS ORDERED: RHOGAM 300MCG (1500IU) INJ IM SCH (08:35)
[2024-07-15] MEDS ORDERED: NALOXONE INJ 0.4MG/1ML VIAL IV PRN ×2 (09:00)
[2024-07-15] MEDS ORDERED: oxyCODONE 5MG TAB PO PRN (09:00)
[2024-07-15] MEDS ORDERED: fentaNYL 100 MCG/2 ML INJECTION IV PRN (09:00)
[2024-07-15] MEDS ORDERED: ONDANSETRON 4MG 2ML VIAL IV PRN (09:00)
[2024-07-15] MEDS ORDERED: **NOTE PATIENT COMMENT** MISC XX SCH (09:00)
[2024-07-15] MEDS ORDERED: diphenhydrAMINE 50MG/ML VIAL IV PRN (09:00)
[2024-07-15] MEDS ORDERED: HYDROMORPHONE HCL 0.5 MG/ 0.5 ML SYRINGE IV PRN (09:00)
[2024-07-15] MEDS: SLF 3 ML SYR IV SCH (10:48)
[2024-07-15] MEDS: METOCLOPRAMIDE INJ 10MG/2ML VIAL IV PRN (10:48)
[2024-07-15] MEDS: LR 1,000 ML IV SCH (10:48)
[2024-07-15] MEDS: KETOROLAC 30 MG/ML 1ML VIAL IV SCH (14:48)
[2024-07-15] MEDS: PRENATAL VITAMINS CHEWABLE TABLET PO SCH (14:48)
[2024-07-15] MEDS: ONDANSETRON 4MG 2ML VIAL IV PRN (16:28)
[2024-07-15] MEDS ORDERED: CETI5SOL3 PO (16:34)
[2024-07-15] MEDS ORDERED: HOME MED LIST COMPLETE! XX SCH (16:45)
[2024-07-16 02:11] VITALS: BP 117/63; O2SAT 99
[2024-07-16 06:00] VITALS: BP 113/53; O2SAT 97
[2024-07-16 06:48] LABS: HEMATOCRIT 27.7 % (36.0-47.0); MEAN CORPUSCULAR HEMOGLOBIN 25.6 pg (27.0-33.0); MEAN CORPUSCULAR VOLUME 82.4 fl (80.0-96.0); PLATELET COUNT, AUTOMATED 130 10^3/uL (150-450); RED BLOOD COUNT 3.36 10^6/uL (4.00-5.40); WHITE BLOOD COUNT 8.3 10^3/uL (4.0-10.0)
[2024-07-16 06:52] LABS: HEMOGLOBIN 8.6 g/dl (12.0-15.5)
[2024-07-16 10:00] VITALS: BP 116/56; O2SAT 99
[2024-07-16] MEDS: IBUPROFEN 800 MG TAB PO SCH (10:17)
[2024-07-16 14:00] VITALS: BP 123/56; O2SAT 96
[2024-07-16 18:00] VITALS: BP 122/57; O2SAT 97
[2024-07-16 22:00] VITALS: BP 132/59; O2SAT 98
[2024-07-17 02:00] VITALS: BP 123/60; O2SAT 97
[2024-07-17 06:00] VITALS: BP 125/67; O2SAT 97
[2024-07-17] MEDS: MEASLES,MUMPS,RUBELLA VACCINE INJ (MMR-II) SC.IMMUN ONE (09:00)
[2024-07-17] MEDS ORDERED: IBUP80TA PO (10:55)
== END 2024-07-17 11:41 | disposition home or self-care (01) | DRG 540 ==
LOC: M LDI 05:10 → M OBS 09:45
PROVIDERS: ADMIT Specialist; ATTEND Specialist
PROC: 0UB70ZZ Excision of Bilateral Fallopian Tubes, Open Approach (ICD-10-PCS; 2024-07-15)
PROC: 10D00Z1 Extraction of Products of Conception, Low, Open Approach (ICD-10-PCS; principal; 2024-07-15 07:30)
DX: O34.211 Maternal care for low transverse scar from previous cesarean delivery (principal); Z37.0 Single live birth; Z3A.39 39 weeks gestation of pregnancy; Z30.2 Encounter for sterilization

== ENCOUNTER → 2025-02-22 | Outpatient (CLI) | payer BC ==
[~2025-02-22] MED LIST changes: +CETI5SOL3 PO; -IBUP-1022 PO; +IBUP600T42 PO; +IBUP80TA PO
[2025-02-22 08:37] LABS: BASO # 0.1 10^3/uL (0.0-0.2); BASO % 0.7 % (0.0-1.0); EOS # 0.2 10^3/uL (0.0-0.5); EOS % 2.6 % (0.0-3.0); LYMPH # 1.9 10^3/uL (1.5-5.0); LYMPH % 26.4 % (24.0-44.0); MONO # 0.6 10^3/uL (0.0-0.8); MONO % 7.8 % (2.0-8.0); NEUTROPHILS # 4.6 10^3/uL (1.5-8.5); NEUTROPHILS % 62.1 % (36.0-66.0); PLATELET COUNT, AUTOMATED 236 10^3/uL (150-450)
[2025-02-22 09:06] LABS: ALT/SGPT 19 U/L (7.0-40); AST/SGOT 19 U/L (<34); CALCIUM LEVEL 9.1 MG/DL (8.5-10.1); CARBON DIOXIDE LEVEL 27 MMOL/L (20-31); CHLORIDE LEVEL 102 MMOL/L (98-107); CHOLESTEROL LEVEL 154 MG/DL (<200); CHOLESTEROL RISK RATIO 2.65 (<5); CREATININE FOR GFR 0.51 MG/DL (0.55-1.30); FREE T4 1.07 NG/DL (0.89-1.76); GLOMERULAR FILTRATION RATE > 90.0 (>60); LDL CHOLESTEROL 80.3 MG/DL (<100); NON-HDL-C 95.9 MG/DL; POTASSIUM SERUM 4.1 MMOL/L (3.5-5.1); SODIUM LEVEL 138 MMOL/L (136-145); TRIGLYCERIDES LEVEL 78 MG/DL (<150)
[2025-02-22 09:37] LABS: ESTIMATED AVERAGE GLUCOSE 91.0 MG/DL (60-110)
== END ==
LOC: M LAB 08:07
PROVIDERS: ATTEND Student in an Organized Health Care Education/Training Program
DX: Z00.00 Encounter for general adult medical examination without abnormal findings (principal)